=== PATIENT | female | born 1940 | race Caucasian/White ===

== ENCOUNTER 2017-01-01 23:18 | Inpatient (IN) | payer MEDICARE, BC ==
[~2017-01-01] VITALS: Ht 162.6 cm; Wt 59.0 kg
--- NOTE | 2017-01-02 02:00 | RADRPT ---
PROCEDURE: CHEST - 1 VIEW CLINICAL INDICATION: 76-year-old female with shortness of breath and sepsis. TECHNIQUE: A single frontal AP semi-erect portable view of the chest was performed. The images we re reviewed on a PACS workstation. COMPARISON: Chest x-ray October 24, 2009. FINDINGS: There is a shallow inspiration accentuating the heart size. Accounting for this, the cardiomediasti nal silhouette is within normal limits. The thoracic aortic arch is calcified. Chronic lung change s are present. There is mild bibasilar subsegmental atelectasis. There is no evidence for an infil trate. There is no evidence for congestive heart failure. There is no evidence for pneumothorax. Ge nerative changes are seen within the spine. IMPRESSION: 1. Calcified thoracic aortic arch. 2. Chronic lung changes. 3. Shallow inspiration. 4. Mild bibasilar subsegmental atelectasis. 5. Degenerative changes within the spine. .Tani Calvert MD, MD Date Time Electronically viewed and signed by .Tani Calvert MD, on 01/02/2017 01:59 .M/
[2017-01-02 02:23] LABS: ADD SCAN DIFF NO
[2017-01-02 02:28] LABS: BASOPHIL # 0.1 10^3/ul (0.0-0.1); BASOPHILS % 0.4 % (0.0-2.0); EOSINOPHILS # 0.5 10^3/ul (0.0-0.5); EOSINOPHILS % 4.8 % (0.0-7.0); HEMOGLOBIN 13.7 g/dl (12.0-16.0); LYMPHOCYTES % 26.4 % (15.0-51.0); MEAN CORPUSCULAR HEMOGLOBIN 30.7 pg (29.0-33.0); MEAN CORPUSCULAR HGB CONC 31.9 g/dl (32.0-37.0); MEAN CORPUSCULAR VOLUME 96.4 fl (82.0-101.0); MEAN PLATELET VOLUME 11.5 fl (7.4-10.4); MONOCYTE # 0.9 10^3/ul (0.3-0.9); NEUTROPHIL # 6.8 10^3/ul (1.6-7.5); NEUTROPHILS % 60.1 % (39.0-77.0); PLATELET COUNT 150 10^3/UL (140-415); RED BLOOD COUNT 4.46 10^6/ul (4.20-5.40); RED CELL DISTRIBUTION WIDTH 14.2 % (11.5-14.5); WHITE BLOOD COUNT 11.3 10^3/ul (4.8-10.8)
[2017-01-02 02:39] LABS: INR 1.51; PARTIAL THROMBOPLASTIN TIME 36.1 Sec (25.0-35.0); PROTIME 18.3 Sec (12.2-14.2); PT RATIO 1.4
[2017-01-02 02:40] LABS: URINE BLOOD (Dip) POC 1+ (NEGATIVE)
[2017-01-02 02:41] LABS: ALBUMIN 3.9 g/dl (3.3-4.9)
[2017-01-02 02:42] LABS: CHLORIDE 100 mmol/L (97-110); POTASSIUM 3.9 mmol/L (3.5-5.1); SODIUM 141 mmol/L (135-144)
[2017-01-02 02:44] LABS: ANION GAP 16 (8-16); ASPARTATE AMINO TRANSFERASE 63 IU/L (15-46); BILIRUBIN,INDIRECT 0.8 mg/dl (0-1.1); BILIRUBIN,TOTAL 0.8 mg/dl (0.2-1.3); CARBON DIOXIDE 29 mmol/L (21-31); CREATININE 0.79 mg/dl (0.44-1.00)
[2017-01-02 02:45] LABS: ALANINE AMINOTRANSFERASE 82 IU/L (13-69); ALBUMIN/GLOBULIN RATIO 0.78; ALKALINE PHOSPHATASE 100 IU/L (42-121); BLOOD UREA NITROGEN 12 mg/dl (7-20); CALCIUM 8.3 mg/dl (8.4-10.2); GLUCOSE 103 mg/dl (70-220); TOTAL PROTEIN 8.9 g/dl (6.1-8.1)
[2017-01-02 03:04] LABS: TROPONIN-I < 0.012 ng/ml (0.00-0.12)
[2017-01-02 03:10] LABS: ADD UMIC YES; URINE BILIRUBIN (Dip) NEGATIVE (NEGATIVE); URINE BLOOD (Dip) 2+ (NEGATIVE); URINE COLOR LT. YELLOW (YELLOW); URINE GLUCOSE (Dip) NEGATIVE (NEGATIVE); URINE KETONES (Dip) NEGATIVE (NEGATIVE); URINE LEUKOCYTE ESTERASE (Dip) 1+ (NEGATIVE); URINE NITRITE (Dip) NEGATIVE (NEGATIVE); URINE TOTAL PROTEIN (Dip) NEGATIVE (NEGATIVE); URINE UROBILINOGEN (Dip) 0.2 E.U./dL (0.1-1.0)
[2017-01-02 03:19] LABS: SQUAMOUS EPITHELIAL CELL,UR FEW
[2017-01-02 03:20] LABS: BACTERIA,URINE MANY
[2017-01-02] MEDS ORDERED: ACETAMINOPHEN 500 MG TAB PO ONE (03:30)
[2017-01-02] MEDS ORDERED: CEFTRIAXONE 1 GM/50 ML (PMX) 50 ML IVPB ONE (03:30)
--- NOTE | 2017-01-02 03:57 | ERA ---
ER Documentation Chief Complaint Date/Time DATE: 01/02/17 TIME: 03:56 Chief Complaint fever today HPI This is a very pleasant 68-year-old female comes in with complaints of fever and flank pain for the past 2 days. No not mild nausea no vomiting no fevers no chills no other current complaints. ROS All systems reviewed and are negative except as per history of present illness. Allergies Allergies: Coded Allergies: No Known Allergy (Unverified , 01/01/17) PMhx/Soc Hx Cardiac Disorders: Yes (HTN) Hx Miscellaneous Medical Probl: Yes (GERD, gallblader ds, recent DVT) Hx Alcohol Use: No Hx Substance Use: No Hx Tobacco Use: No Smoking Status: Never smoker Physical Exam Vitals Vital Signs Date Time Temp Pulse Resp B/P Pulse Ox O2 Delivery O2 Flow Rate FiO2 01/01/17 23:22 97.8 99 20 124/84 99 Physical Exam Const: [] Head: Atraumatic Eyes: Normal Conjunctiva ENT: Normal External Ears, Nose and Mouth. Neck: Full range of motion..~ No meningismus. Resp: Clear to auscultation bilaterally Cardio: Regular rate and rhythm, no murmurs Abd: Soft, non tender, non distended. Normal bowel sounds Skin: No petechiae or rashes Back: No midline or flank tenderness Ext: No cyanosis, or edema Neur: Awake and alert Psych: Normal Mood and Affect Result Diagram: 01/02/17 0204 01/02/17 0204 Results 24 hrs Laboratory Tests Test 01/02/17 02:04 01/02/17 02:25 01/02/17 02:39 White Blood Count 11.310^3/ul Red Blood Count 4.4610^6/ul Hemoglobin 13.7g/dl Hematocrit 43.0% Mean Corpuscular Volume 96.4fl Mean Corpuscular Hemoglobin 30.7pg Mean Corpuscular Hemoglobin Concent 31.9g/dl Red Cell Distribution Width 14.2% Platelet Count 63646^3/UL Mean Platelet Volume 11.5fl Neutrophils % 60.1% Lymphocytes % 26.4% Monocytes % 8.0% Eosinophils % 4.8% Basophils % 0.4% Nucleated Red Blood Cells % 0.0/100WBC Neutrophils # 6.810^3/ul Lymphocytes # 3.010^3/ul Monocytes # 0.910^3/ul Eosinophils # 0.510^3/ul Basophils # 0.110^3/ul Nucleated Red Blood Cells # 0.010^3/ul Prothrombin Time 18.3Sec Prothrombin Time Ratio 1.4 INR International Normalized Ratio 1.51 Activated Partial Thromboplast Time 36.1Sec Sodium Level 141mmol/L Potassium Level 3.9mmol/L Chloride Level 100mmol/L Carbon Dioxide Level 29mmol/L Anion Gap 16 Blood Urea Nitrogen 12mg/dl Creatinine 0.79mg/dl Glucose Level 103mg/dl Lactic Acid Level 1.0mmol/L Calcium Level 8.3mg/dl Total Bilirubin 0.8mg/dl Direct Bilirubin 0.00mg/dl Indirect Bilirubin 0.8mg/dl Aspartate Amino Transf (AST/SGOT) 63IU/L Alanine Aminotransferase (ALT/SGPT) 82IU/L Alkaline Phosphatase 100IU/L Troponin I < 0.012ng/ml Total Protein 8.9g/dl Albumin 3.9g/dl Globulin 5.00g/dl Albumin/Globulin Ratio 0.78 Urine Color LT. YELLOW Urine Clarity CLEAR Urine pH 6.5 Urine Specific [place] <=1.005 Urine Ketones NEGATIVE Urine Nitrite NEGATIVE Urine Bilirubin NEGATIVE Urine Urobilinogen 0.2 E.U./dL Urine Leukocyte Esterase 1+ Urine Microscopic RBC 2-5/HPF Urine Microscopic WBC 10-25/HPF Urine Squamous Epithelial Cells FEW Urine Bacteria MANY Urine Hemoglobin 2+ Urine Glucose NEGATIVE% Urine Total Protein NEGATIVE Bedside Urine pH (LAB) 7.0 Bedside Urine Protein (LAB) Negative Bedside Urine Glucose (UA) Negative Bedside Urine Ketones (LAB) Negative Bedside Urine Blood 1+ Bedside Urine Nitrite (LAB) Positive Bedside Urine Leukocyte Esterase (L 1+ Current Medications Medications (Trade) Dose Ordered Sig/Eli Route PRN Reason Start Time Stop Time Status Last Admin Dose Admin Acetaminophen 1000 mg 1,000 mg ONCE ONCE PO 01/02/17 03:30 01/02/17 03:33 DC Ceftriaxone Sodium (Rocephin) 50 ml @ 100 mls/hr ONCE ONCE IVPB 01/02/17 03:30 01/02/17 03:59 01/02/17 03:52 Procedures/MDM Medical decision-making: Patient comes in with x-ray evidence of early pyelonephritis. Started on Rocephin plus cultures. Patient will be admitted to hospitalist. Departure Diagnosis: Primary Impression: Pyelonephritis Condition: Serious TORY LAWS Jan 02, 2017 03:57
[2017-01-02 04:00] VITALS: TEMP 102
[2017-01-02] MEDS ORDERED: ONDANSETRON 4 MG INJ IV STA (04:28)
[2017-01-02] MEDS ORDERED: morphine 2 MG INJ IV PRN (05:30)
[2017-01-02] MEDS ORDERED: NACL 0.9% 3 ML SYG IV SCH (05:30)
[2017-01-02] MEDS ORDERED: ALBUTEROL/IPRATROPIUM (NEB) 3 ML AMP HHN PRN (05:30)
[2017-01-02] MEDS: SOD CHLORIDE 0.9% 1,000 ML IV SCH ×2 (05:58→17:38)
[2017-01-02 06:05] VITALS: Ht 162.6 cm; Wt 59.0 kg
--- NOTE | 2017-01-02 06:09 | HP ---
DATE OF ADMISSION: 01/02/2017 CHIEF COMPLAINT: Fever and right flank pain. HISTORY OF PRESENT ILLNESS: The patient is a 76-year-old female with a history of hypertension, CHRIS D, and recently diagnosed left lower extremity DVT who presented to the emergency department with ri ght flank pain and fever of 1 day duration. Symptoms started yesterday and have been progressively getting worse. She denied any chest pain, shortness of breath, nausea, or vomiting. According to t he daughter who is at the bedside, her mom has been experiencing some left lower extremity discomfor t for which her primary care doctor sent her to [facility] where she was diagnosed with a DVT about 3 week s ago on 12/11/2016 and is currently on Coumadin. When the patient presented to the ER, blood pressure was 124/84, heart rate 99, respiratory rate 20, temperature 97.8, oxygen saturation 99% on room air. While she was in the ER, right before she was admitted, she became febrile with a temperature of 102. Her white count is 11,000. She is tachyca rdic with a heart rate as high as 115. Urinalysis is consistent with a UTI. She was given Tylenol, Zofran, and Rocephin while she was in the ER. REVIEW OF SYSTEMS: A 12-point review was performed and negative except as mentioned in the HPI. PAST MEDICAL HISTORY: As per HPI. ALLERGIES: NO KNOWN DRUG ALLERGIES. HOME MEDICATIONS: 1. Coumadin. 2. Metoprolol. 3. Losartan. 4. Protonix. 5. Singulair. 6. Albuterol. PHYSICAL EXAMINATION: VITAL SIGNS: Currently, blood pressure 147/78, heart rate 115, respiratory rate 20, temperature 101 .8, oxygen saturation 97% on room air. GENERAL: Elderly female lying in bed. She appears uncomfortable which she said is from a fever. HEENT: No obvious head deformity. Pupils reactive to light. Extraocular muscles intact. CARDIOVASCULAR: Tachycardic with regular rhythm. LUNGS: Clear. ABDOMEN: Soft. There is tenderness in the right flank area. No guarding, no rigidity. There are positive bowel sounds. EXTREMITIES: No edema. No swelling of the lower extremity. Also, no tenderness to palpation of he r left calf. LABORATORY DATA: WBC 11,000. AST 63, ALT 82, calcium 8.3 with albumin of 3.9. Otherwise, the rest of her labs are stable. Her initial lactic acid was 1. IMAGING: Chest x-ray shows calcified thoracic aortic arch, chronic lung change, and mild bibasilar subsegmental atelectasis and degenerative changes in the spine. IMPRESSION: 1. Sepsis secondary to pyelonephritis. 2. History of hypertension. 3. History of recently diagnosed left leg DVT, on Coumadin. 4. History of gastroesophageal reflux disease. PLAN: She will be placed on antibiotic. We will follow up on the urine culture and blood culture r esults. She will receive IV fluids. We will provide pain medication as needed. We will continue h er home medications including her Coumadin. Further workup and management per clinical course. Dictated By: TORY ELAM/KAY Conf#: [id number] DID#: [id number]
[2017-01-02 08:04] VITALS: BP 118/58; RESP 16
[2017-01-02] MEDS ORDERED: HEPARIN 5,000 UNIT/0.5 ML VIAL SC SCH (09:00)
[2017-01-02 10:11] VITALS: BP 153/66; PULSE 98; RESP 20
[2017-01-02] MEDS: ACETAMINOPHEN 325 MG TAB PO PRN ×2 (10:13→17:36)
[2017-01-02] MEDS: LOSARTAN 50 MG TAB PO SCH (10:14)
[2017-01-02] MEDS: FAMOTIDINE 20 MG TAB PO SCH (10:14)
[2017-01-02] MEDS: METOPROLOL 50 MG TAB PO SCH (10:14)
[2017-01-02] MEDS ORDERED: CEFTRIAXONE 1 GM/50 ML (PMX) 50 ML IVPB SCH (13:00)
[2017-01-02] MEDS: PHENAZOPYRIDINE 200 MG TAB PO SCH ×2 (14:21→21:06)
[2017-01-02] MEDS: APIXABAN 5 MG TABLET PO SCH ×2 (14:29→21:06)
[2017-01-02] MEDS ORDERED: WARFARIN 3 MG TAB PO SCH (17:00)
[2017-01-02 20:54] VITALS: BP 119/57; RESP 20
[2017-01-02] MEDS ORDERED: IMIPENEM/CILASTATIN 1,000 MG in SOD CHLORIDE 0.9% 250 ML IVPB SCH (21:00)
[2017-01-02] MEDS: MONTELUKAST 10 MG TAB PO SCH (21:06)
--- NOTE | 2017-01-02 21:06 | CONS ---
Date/Time of Note Date/Time of Note DATE: 01/02/17 TIME: 20:35 Assessment/Plan Assessment/Plan Chief Complaint/Hosp Course ID PROGRESS NOTE TOTAL ABX DAY #1 => Ceftriaxone #1 => Change to Primaxin tonight 24H INTERVAL SUMMARY * Received ID consult from JOSE ALEJANDRO Sauer, thank you. * I met with the patient and introduced myself as Dr. Hernandez's ADVERTISING LAYOUT WORKER. * Patient A/A/O sitting up in chair w/daughter present attending to her, patient is weak and febrile, does not feel she has the strength to shower, daughter is encouraging her that she will feel better once she has showered, patient has been diaphoretic all day. * (+)Right flank pain, Fevers + Rigors + weakness * Daughter reports she was admitted to [facility] 12/11/16 for the same problem - she tells me they did not find stones -- found something "like sludge" and was told that if pyelonephritis returns then "she may need surgery" * PMHx: HTN, GERD, LLEXT recent DVT, DJD, COPD * CXR 01/03/16 IMPRESSION: 1. Calcified thoracic aortic arch. 2. Chronic lung changes. 3. Shallow inspiration. 4. Mild bibasilar subsegmental atelectasis. 5. Degenerative changes within the spine. PHYSICAL EXAMINATION: GENERAL: VSS,NAD, no fevers, A/A/O, well groomed, sitting up in chair, tells me she is weak and has right flank pain HEENT: Unremarkable NECK: Supple, trach-> midline CHEST: Equal chest rise bilaterally, without dyspnea on observation ABD: (+)Right flankk pain/(+CVA tenderness EXTREMITIES: Moves all extremities - warm SKIN: Intact Neuro: Grossly intact ID ASSESSMENT: 76 yo F admitted with: 1. Acute sepsis with fevers 103 + rigors, leukocytosis 11.3, rapid rise in lactic acid level from 1.0 - 1.7 = Sepsis Criteria 2. Acute recurrent pyelonephritis = Per daughter, patient admitted to [facility] with Pyelonephritis 12/11/16 and was told she had "sludge" no stones (QUERY if patient was admitted for cholangitis?) 3. Transaminitis ?due to sepsis vs alternative 4. HTN 5. COPD -> Stable on Singulair 6. GERD 7. Recent LLEXT recent DVT -> on Eliquis 8. DJD ()MRSA NARES -> Ordered today INVASIVES: * PIV ABX ALLERGIES: None to ABX CURRENT ABX: DAY #1 => Ceftriaxone => Change to Primaxin tonight ID RECOMMENDATIONS: * 1. The daughter is a poor historian, she tells me mother had stomach/back pain at [facility] and was told "no stones, she had sludge", doctors told her if the pain came back she wound need "surgery". Patient presents with transaminitis, the daughter's account sounds similiar to acute cholangitis vs cholecystitis. The [facility] records from the admission are not available. Recommend obtain the [facility] records from recent admission, I wrote order for nursing to assist with this. * 2. Due to recent hospitalization, I am concerned the patient needs Primaxin to cover for the possibility of hospital acquired pyelonephritis. DC Ceftriaxone and start Primaxin. The mother has high fevers with extreme weakness, has been diaphoretic for 24 hours. * Renal & Liver NOÉ -- r/o stones vs sludge ? * Thank you for the privilege of "Team MD Mary" ID Consultation - Will follow with you. Problems: Consultation Date/Type/Reason Admit Date/Time Jan 02, 2017 at 03:55 Initial Consult Date Exam/Review of Systems Vital Signs Vitals Vital Signs Date Time Temp Pulse Resp B/P Pulse Ox O2 Delivery O2 Flow Rate FiO2 01/02/17 10:15 101.9 01/02/17 10:11 98 20 153/66 94 Room Air 01/02/17 08:46 2.0 Intake and Output 01/01/17 01/01/17 01/02/17 15:00 23:00 07:00 Intake Total 50 ml Balance 50 ml Results Result Diagram: 01/02/17 0204 01/02/17 0204 Results 24 hrs Laboratory Tests Test 01/02/17 02:04 01/02/17 02:25 01/02/17 02:39 01/02/17 06:17 White Blood Count 11.3 H Red Blood Count 4.46 Hemoglobin 13.7 Hematocrit 43.0 Mean Corpuscular Volume 96.4 Mean Corpuscular Hemoglobin 30.7 Mean Corpuscular Hemoglobin Concent 31.9 L Red Cell Distribution Width 14.2 Platelet Count 150 Mean Platelet Volume 11.5 H Neutrophils % 60.1 Lymphocytes % 26.4 Monocytes % 8.0 Eosinophils % 4.8 Basophils % 0.4 Nucleated Red Blood Cells % 0.0 Neutrophils # 6.8 Lymphocytes # 3.0 H Monocytes # 0.9 Eosinophils # 0.5 Basophils # 0.1 Nucleated Red Blood Cells # 0.0 Prothrombin Time 18.3 H Prothrombin Time Ratio 1.4 INR International Normalized Ratio 1.51 Activated Partial Thromboplast Time 36.1 H Sodium Level 141 Potassium Level 3.9 Chloride Level 100 Carbon Dioxide Level 29 Anion Gap 16 Blood Urea Nitrogen 12 Creatinine 0.79 Glucose Level 103 Lactic Acid Level 1.0 1.0 Calcium Level 8.3 L Total Bilirubin 0.8 Direct Bilirubin 0.00 Indirect Bilirubin 0.8 Aspartate Amino Transf (AST/SGOT) 63 H Alanine Aminotransferase (ALT/SGPT) 82 H Alkaline Phosphatase 100 Troponin I < 0.012 Total Protein 8.9 H Albumin 3.9 Globulin 5.00 H Albumin/Globulin Ratio 0.78 Urine Color LT. YELLOW Urine Clarity CLEAR Urine pH 6.5 Urine Specific [place] <=1.005 L Urine Ketones NEGATIVE Urine Nitrite NEGATIVE Urine Bilirubin NEGATIVE Urine Urobilinogen 0.2 E.U./dL Urine Leukocyte Esterase 1+ H Urine Microscopic RBC 2-5 Urine Microscopic WBC 10-25 Urine Squamous Epithelial Cells FEW Urine Bacteria MANY Urine Hemoglobin 2+ H Urine Glucose NEGATIVE Urine Total Protein NEGATIVE Bedside Urine pH (LAB) 7.0 Bedside Urine Protein (LAB) Negative Bedside Urine Glucose (UA) Negative Bedside Urine Ketones (LAB) Negative Bedside Urine Blood 1+ H Bedside Urine Nitrite (LAB) Positive H Bedside Urine Leukocyte Esterase (L 1+ H Test 01/02/17 10:27 Lactic Acid Level 1.7 Medications Medications Current Medications Sodium Chloride (NS) 1,000 ml @ 100 mls/hr Q10H IV Last administered on t 17:38; Admin Dose 100 MLS/HR; Start 01/02/17 at 05:09; Stop 01/02/17 at 23: 00 Ondansetron HCl (Zofran Inj) 4 mg Q6H PRN IV NAUSEA AND/OR VOMITING; Start at 05:30 Acetaminophen (Tylenol Tab) 650 mg Q6H PRN PO PAIN LEVEL 1-3 OR FEVER Last administered on 01/02/17 17:36; Admin Dose 650 MG; Start 01/02/17 at 05:30 Morphine Sulfate 2 mg 2 mg Q4H PRN IV SEVERE PAIN LEVEL 7-10; Start 01/02/17 at 05:30 Ceftriaxone Sodium (Rocephin) 50 ml @ 100 mls/hr Q12 IVPB Last administered on 01/02/17 14:21; Admin Dose 100 MLS/HR; Start 01/02/17 at 13:00 Clonidine (Catapres) 0.1 mg Q6H PRN PO SBP > 160; Start 01/02/17 at 05:30 Famotidine (Pepcid) 20 mg DAILY PO Last administered on 01/02/17 10:14; Admin Dose 20 MG; Start 01/02/17 at 09:00 Metoprolol Tartrate (Lopressor) 50 mg DAILY PO Last administered on 01/02/17 10:14; Admin Dose 50 MG; Start 01/02/17 at 09:00 Losartan Potassium (Cozaar) 50 mg DAILY PO Last administered on 01/02/17 10:14 ; Admin Dose 50 MG; Start 01/02/17 at 09:00 Montelukast Sodium (Singulair) 10 mg HS PO ; Start 01/02/17 at 21:00 Phenazopyridine HCl (Pyridium) 200 mg TID PO Last administered on 01/02/17 14: 21; Admin Dose 200 MG; Start 01/02/17 at 13:00 Apixaban (Eliquis) 10 mg BID PO Last administered on 01/02/17 14:29; Admin Dose 10 MG; Start 01/02/17 at 14:30; Stop 01/04/17 at 22:00 Apixaban (Eliquis) 5 mg BID PO ; Start 01/05/17 at 09:00 JUSTIN ALEMAN NP Jan 02, 2017 20:45
[2017-01-02] MEDS: IMIPENEM-CILAST 500 MG/NS 100 ML IVPB SCH (22:39)
[2017-01-03] MEDS: ONDANSETRON 4 MG INJ IV PRN (01:54)
[2017-01-03] MEDS: ACETAMINOPHEN 325 MG TAB PO PRN ×3 (01:55→23:52)
[2017-01-03 02:09] VITALS: BP 133/63; PULSE 92; RESP 22
[2017-01-03] MEDS: IMIPENEM-CILAST 500 MG/NS 100 ML IVPB SCH ×5 (02:42→23:41)
[2017-01-03 05:49] LABS: ADD SCAN DIFF NO
[2017-01-03 06:05] LABS: INR 2.5; PROTIME 27.3 Sec (12.2-14.2); PT RATIO 2.1
[2017-01-03 06:18] LABS: ALBUMIN/GLOBULIN RATIO 0.68; BILIRUBIN,INDIRECT 0.5 mg/dl (0-1.1); BILIRUBIN,TOTAL 0.5 mg/dl (0.2-1.3); CALCIUM 7.4 mg/dl (8.4-10.2); CHOL/HDL RATIO 2.8 RATIO; CREATININE 0.64 mg/dl (0.44-1.00); MAGNESIUM 1.9 mg/dl (1.7-2.5); POTASSIUM 3.8 mmol/L (3.5-5.1); TOTAL PROTEIN 7.4 g/dl (6.1-8.1)
[2017-01-03 06:51] LABS: HEMOGLOBIN 11.7 g/dl (12.0-16.0); MEAN CORPUSCULAR HEMOGLOBIN 31.5 pg (29.0-33.0); MEAN CORPUSCULAR HGB CONC 32.5 g/dl (32.0-37.0); PLATELET COUNT 116 10^3/UL (140-415); RED BLOOD COUNT 3.71 10^6/ul (4.20-5.40); RED CELL DISTRIBUTION WIDTH 14.1 % (11.5-14.5); WHITE BLOOD COUNT 10.7 10^3/ul (4.8-10.8)
[2017-01-03 08:00] VITALS: BP 110/56; PULSE 64; RESP 16
--- NOTE | 2017-01-03 08:41 | RADRPT ---
PROCEDURE: US Abdomen and Retroperitoneum. CLINICAL INDICATION: Elevation LFTs. TECHNIQUE: Multiple real-time longitudinal and transverse images were acquired of the patient's ab domen and retroperitoneum utilizing a curved array transducer. COMPARISON: None. FINDINGS: Liver demonstrates asymmetric enlargement of the left lateral lobe of the liver and coarsening of th e liver echotexture without significant surface nodularity. No focal liver mass. Portal vein demonstrates hepatopetal flow. Gallbladder demonstrates trace sludge. There is no gallbladder wall thickening or pericholecystic f luid. No intra- or extrahepatic biliary dilation. Pancreas is partially visualized and grossly unremarkable. Spleen is normal in size. No hydronephrosis or nephrolithiasis. No ascites. Proximal aorta and IVC are unremarkable. MEASUREMENTS: Liver: 16.4 cm Common Duct: 0.5 cm Right Kidney: 8.8 m Left Kidney: 10.5 cm Spleen: 11.5 cm IMPRESSION: Morphologic changes in the liver, suggesting possible underlying diffuse liver disease without fredi cirrhosis. No focal liver lesion. Biliary system is nondilated. Trace sludge in the gallbladder. RPTAT: EE .Nic Crow MD, MD Date Time Electronically viewed and signed by .Nic Crow MD, MD on 01/03/2017 08:45 .C/
[2017-01-03] MEDS: APIXABAN 5 MG TABLET PO SCH ×2 (08:54→20:30)
[2017-01-03] MEDS: FAMOTIDINE 20 MG TAB PO SCH (08:54)
[2017-01-03] MEDS: PHENAZOPYRIDINE 200 MG TAB PO SCH ×3 (08:54→20:30)
[2017-01-03] MEDS: METOPROLOL 50 MG TAB PO SCH (08:54)
[2017-01-03] MEDS: LOSARTAN 50 MG TAB PO SCH (08:54)
[2017-01-03 10:29] LABS: PLATELETS CLUMPS 2+
[2017-01-03] MEDS ORDERED: VANCOMYCIN IV PER PHARMACY XX SCH (13:00)
--- NOTE | 2017-01-03 13:17 | CONS ---
DATE OF ADMISSION: 01/02/2017 DATE OF CONSULTATION: TYPE OF CONSULTATION: Infectious Disease. REASON FOR CONSULTATION: Antibiotic management. HISTORY OF PRESENT ILLNESS: Dayna Horvath is a 76-year-old female who was admitted with fever and right flank pain. Her past problems include: 1. Hypertension. 2. GERD. 3. Recently diagnosed left lower extremity deep venous thrombosis, She was admitted to the emergency room with right flank pain and fever of 1 day duration, which star chi 1 day prior to admission. She also had some left lower extremity discomfort and was diagnosed w ith DVT about 3 weeks ago and is on Coumadin. Vital signs were stable on admission, but her tempera ture spiked up to 102. LABORATORIES AND DIAGNOSTIC STUDIES: White count was 11,000. She became tachycardic in the emergen cy room and went up to 115. Urinalysis was suggestive of a urinary tract infection. On admission, her white count was 11.3, H and H 13.7 and 43, platelet count 150,000. White count on the was 10.7. BUN and creatinine is 8/0.64. Urine is negative for nitrite, 1+ leukocyte esterase, 10 to 25 white cells per high-power field. Chest x-ray: Calcified thoracic aortic arch, mild bibasilar subsegmental atelectasis, degenerative changes within the spine. Microbiology: She has gram-positive cocci in clusters. Blood cultures 1 out of 2. Her urine cultu res are pending. We ordered an ultrasound of the kidneys and the abdomen starting her on imipenem, also MRSA screen. She was on ceftriaxone. Abdominal ultrasound: Morphologic changes of the liver suggesting possibly underlying diffuse liver disease without fredi cirrhosis, biliary system is nondilated. PAST MEDICAL HISTORY: Operations as outlined. FAMILY HISTORY: Noncontributory. SOCIAL HISTORY: She does not smoke, drink or abuse drugs. ALLERGIES: NONE TO PENICILLIN, SULFA OR FOODS. MEDICATIONS: Per chart. REVIEW OF SYSTEMS: As per HPI. PHYSICAL EXAMINATION: GENERAL: The patient is an elderly appearing female who is uncomfortable. VITAL SIGNS: Stable, but T-max is 102. SKIN: Without generalized rash. HEENT: Within normal limits. NECK: Supple. LYMPH NODES: None palpable. CHEST: Decreased breath sounds at the bases. HEART: Without murmur or gallop. ABDOMEN: Soft, nontender, without organosplenomegaly or masses. EXTREMITIES: Without cyanosis, clubbing, or edema. RECTAL AND GENITAL: Deferred. NEUROLOGIC EVALUATION: No focal neurological abnormalities. IMPRESSION AND PLAN: The patient is currently on imipenem. We are going to place her on vancomycin as well. I will dictate my findings to Dr. Jaurez and the hospitalist. Dictated By: DEONTE JANSEN MD, JD/KAY Conf#: [id number] DID#: [id number]
[2017-01-03] MEDS ORDERED: VANCOMYCIN 1.25 GM in SOD CHLORIDE 0.9% 250 ML IVPB SCH (14:30)
--- NOTE | 2017-01-03 15:59 | PN ---
Date/Time of Note Date/Time of Note DATE: 01/03/17 TIME: 15:52 Assessment/Plan VTE Prophylaxis VTE Prophylaxis Intervention: SCD's Lines/Catheters IV Catheter Type (from Nrs): Peripheral IV Urinary Cath still in place: No Assessment/Plan Chief Complaint/Hosp Course Assessment/Plan: 1. Sepsis secondary to pyelonephritis. cont on abx. ID is following. cont with recommendations 2. History of hypertension. Cont on antihypertensives and adjust as needed 3. History of recently diagnosed left leg DVT. continue on eliquis 4. History of gastroesophageal reflux disease. continue on H2RB. DISPO/PLAN: continue abx treatment. Await for clinical improvement. continue inpatient monitoring Discussed plan of care with Dr. Lainez Problems: Subjective 24 Hr Interval Summary Free Text/Dictation still with right flank pain but less Exam/Review of Systems Vital Signs Vitals Vital Signs Date Time Temp Pulse Resp B/P Pulse Ox O2 Delivery O2 Flow Rate FiO2 01/03/17 08:00 Nasal Cannula 3.0 01/03/17 08:00 97.9 64 16 110/56 98 Intake and Output 01/02/17 01/02/17 01/03/17 15:00 23:00 07:00 Intake Total 1425 ml 800 ml Output Total 200 ml Balance 1225 ml 800 ml Exam Constitutional: alert, oriented Psych: nl mood/affect Head: normocephalic Neck: non-tender Respiratory: clear to auscultation, normal air movement Cardiovascular: regular rate and rhythm Gastrointestinal: soft, tender (minimally tender right side) Musculoskeletal: nl extremities to inspection Neurological: DECORATOR HAND II-XII intact, nl mental status, nl speech Skin: nl turgor Results Result Diagram: 01/03/1730 01/03/17 0530 Results 24 hrs Laboratory Tests Test 01/03/17 05:30 White Blood Count 10.7 Red Blood Count 3.71 L Hemoglobin 11.7 L Hematocrit 36.0 L Mean Corpuscular Volume 97.0 Mean Corpuscular Hemoglobin 31.5 Mean Corpuscular Hemoglobin Concent 32.5 Red Cell Distribution Width 14.1 Platelet Count 116 #L Mean Platelet Volume 12.0 H Clumped Platelets 2+ Prothrombin Time 27.3 #H Prothrombin Time Ratio 2.1 INR International Normalized Ratio 2.50 Sodium Level 136 Potassium Level 3.8 Chloride Level 107 Carbon Dioxide Level 25 Anion Gap 8 # Blood Urea Nitrogen 8 Creatinine 0.64 Glucose Level 121 Calcium Level 7.4 L Phosphorus Level 2.0 L Magnesium Level 1.9 Total Bilirubin 0.5 Direct Bilirubin 0.00 Indirect Bilirubin 0.5 Aspartate Amino Transf (AST/SGOT) 36 Alanine Aminotransferase (ALT/SGPT) 54 Alkaline Phosphatase 78 Total Protein 7.4 # Albumin 3.0 L Globulin 4.40 H Albumin/Globulin Ratio 0.68 Triglycerides Level 61 Cholesterol Level 110 LDL Cholesterol, Calculated 59 HDL Cholesterol 39 Cholesterol/HDL Ratio 2.8 Medications Medications Current Medications Ondansetron HCl (Zofran Inj) 4 mg Q6H PRN IV NAUSEA AND/OR VOMITING Last administered on 01/03/17 01:54; Admin Dose 4 MG; Start 01/02/17 at 05:30 Acetaminophen (Tylenol Tab) 650 mg Q6H PRN PO PAIN LEVEL 1-3 OR FEVER Last administered on 01/03/17 01:55; Admin Dose 650 MG; Start 01/02/17 at 05:30 Morphine Sulfate (morphine) 2 mg Q4H PRN IV SEVERE PAIN LEVEL 7-10; Start 01/02 at 05:30 Clonidine (Catapres) 0.1 mg Q6H PRN PO SBP > 160; Start 01/02/17 at 05:30 Famotidine (Pepcid) 20 mg DAILY PO Last administered on 01/03/17 08:54; Admin Dose 20 MG; Start 01/02/17 at 09:00 Metoprolol Tartrate (Lopressor) 50 mg DAILY PO Last administered on 01/02/17 10:14; Admin Dose 50 MG; Start 01/02/17 at 09:00 Losartan Potassium (Cozaar) 50 mg DAILY PO Last administered on 01/02/17 10:14 ; Admin Dose 50 MG; Start 01/02/17 at 09:00 Montelukast Sodium (Singulair) 10 mg HS PO Last administered on 01/02/17 21:06 ; Admin Dose 10 MG; Start 01/02/17 at 21:00 Phenazopyridine HCl (Pyridium) 200 mg TID PO Last administered on 01/03/17 12: 00; Admin Dose 200 MG; Start 01/02/17 at 13:00 Apixaban (Eliquis) 10 mg BID PO Last administered on 01/03/17 08:54; Admin Dose 10 MG; Start 01/02/17 at 14:30; Stop 01/04/17 at 22:00 Apixaban 5 mg 5 mg BID PO ; Start 01/05/17 at 09:00 Imipenem/ Cilastatin Sodium 100 ml @ 100 mls/hr Q6 IVPB Last administered on 12:00; Admin Dose 100 MLS/HR; Start 01/02/17 at 21:16 Vancomycin HCl 1.25 gm/Sodium Chloride 250 ml @ 83.333 mls/ hr ONCE IVPB Last administered on 01/03/17 14:57; Admin Dose 83.333 MLS/HR; Start 01/03/17 at 14: 30; Stop 01/03/17 at 23:56 Vancomycin HCl/ Sodium Chloride (Vancocin/NS) 150 ml @ 75 mls/hr Q12H IVPB ; Start 01/04/17 at 02:30 GREER TALLEY Jan 03, 2017 15:59
--- NOTE | 2017-01-03 17:30 | CONS ---
Date/Time of Note Date/Time of Note DATE: 01/03/17 TIME: 17:13 Assessment/Plan Assessment/Plan Chief Complaint/Hosp Course ID PROGRESS NOTE TOTAL ABX DAY #2 => Primaxin #2 +Vanco IV 24H INTERVAL SUMMARY * Feeling better, Tmax 99.1 after >72 H fevers + Rigors * (+)Right flank pain, Fevers + Rigors + weakness * ABD US: (-) Hydronephrosis, (-)renal stones, (-)Obstructive uropathy (+)Mild GB sludge w/Morphologic changes in the liver, suggesting possible underlying diffuse liver disease without fredi cirrhosis. No focal liver lesion. Biliary system is nondilated. * MICRO: * 01/02 URINE CULTURE Preliminary GRAM NEGATIVE BRYAN >100,000 CFU/ml * bLOOD CULTURE Preliminary GRAM POSITIVE COCCI IN CLUSTER * PMHx: HTN, GERD, LLEXT recent DVT, DJD, COPD * CXR 01/03/16 IMPRESSION: 1. Calcified thoracic aortic arch. 2. Chronic lung changes. 3. Shallow inspiration. 4. Mild bibasilar subsegmental atelectasis. 5. Degenerative changes within the spine. PHYSICAL EXAMINATION: GENERAL: VSS,NAD, no fevers, A/A/O, well groomed, sitting up in chair, tells me she is weak and has right flank pain HEENT: Unremarkable NECK: Supple, trach-> midline CHEST: Equal chest rise bilaterally, without dyspnea on observation ABD: (+)Right flank pain/(+CVA tenderness EXTREMITIES: Moves all extremities - warm SKIN: Intact Neuro: Grossly intact ID ASSESSMENT: 76 yo F admitted with: 1. Acute sepsis with fevers 103 + rigors, leukocytosis 11.3, rapid rise in lactic acid level from 1.0 - 1.7 = Sepsis Criteria * 01/02 BCx (+)GPC Clusters 1/2 bottles in ED - DDx skin contaminant vs True septicemia ? * RESOLVING: Afebrile today, WBC normalized, VSS 2. Acute recurrent GNR pyelonephritis w/right flank pain, fevers, rigors * Per daughter, patient admitted to [facility] with Pyelonephritis 12/11/16 and was told she had "sludge" no stones * QUERY: Urinary retention w/Bladder stasis ? * 01/02 GNR = pending 3. Transaminitis -> sepsis * US: (+)Mild GB sludge w/Morphologic changes in the liver, suggesting possible underlying diffuse liver disease without fredi cirrhosis. No focal liver lesion. Biliary system is nondilated. 4. HTN 5. COPD -> Stable on Singulair 6. GERD 7. Recent LLEXT recent DVT -> on Eliquis 8. DJD ()MRSA NARES -> Ordered today INVASIVES: * PIV ABX ALLERGIES: None to ABX CURRENT ABX: DAY #2 => Primaxin #2 + Vanco IV ID RECOMMENDATIONS: 1. Continue Primaxin & Vanco IV started for (+)GPC BCx =>taper per final micro results 2. Await BCx result -- If CoNS suspect skin contaminant . Problems: Consultation Date/Type/Reason Admit Date/Time Jan 02, 2017 at 03:55 Exam/Review of Systems Vital Signs Vitals Vital Signs Date Time Temp Pulse Resp B/P Pulse Ox O2 Delivery O2 Flow Rate FiO2 01/03/17 16:11 99.1 Room Air 01/03/17 16:08 3.0 01/03/17 08:00 64 16 110/56 98 Intake and Output 01/02/17 01/02/17 01/03/17 15:00 23:00 07:00 Intake Total 1425 ml 800 ml Output Total 200 ml Balance 1225 ml 800 ml Results Result Diagram: 01/03/17 0530 01/03/17 0530 Results 24 hrs Laboratory Tests Test 01/03/17 05:30 White Blood Count 10.7 Red Blood Count 3.71 L Hemoglobin 11.7 L Hematocrit 36.0 L Mean Corpuscular Volume 97.0 Mean Corpuscular Hemoglobin 31.5 Mean Corpuscular Hemoglobin Concent 32.5 Red Cell Distribution Width 14.1 Platelet Count 116 #L Mean Platelet Volume 12.0 H Clumped Platelets 2+ Prothrombin Time 27.3 #H Prothrombin Time Ratio 2.1 INR International Normalized Ratio 2.50 Sodium Level 136 Potassium Level 3.8 Chloride Level 107 Carbon Dioxide Level 25 Anion Gap 8 # Blood Urea Nitrogen 8 Creatinine 0.64 Glucose Level 121 Calcium Level 7.4 L Phosphorus Level 2.0 L Magnesium Level 1.9 Total Bilirubin 0.5 Direct Bilirubin 0.00 Indirect Bilirubin 0.5 Aspartate Amino Transf (AST/SGOT) 36 Alanine Aminotransferase (ALT/SGPT) 54 Alkaline Phosphatase 78 Total Protein 7.4 # Albumin 3.0 L Globulin 4.40 H Albumin/Globulin Ratio 0.68 Triglycerides Level 61 Cholesterol Level 110 LDL Cholesterol, Calculated 59 HDL Cholesterol 39 Cholesterol/HDL Ratio 2.8 Medications Medications Current Medications Ondansetron HCl (Zofran Inj) 4 mg Q6H PRN IV NAUSEA AND/OR VOMITING Last administered on 01/03/17 01:54; Admin Dose 4 MG; Start 01/02/17 at 05:30 Acetaminophen (Tylenol Tab) 650 mg Q6H PRN PO PAIN LEVEL 1-3 OR FEVER Last administered on 01/03/17 13:38; Admin Dose 650 MG; Start 01/02/17 at 05:30 Morphine Sulfate (morphine) 2 mg Q4H PRN IV SEVERE PAIN LEVEL 7-10; Start 01/02 at 05:30 Clonidine (Catapres) 0.1 mg Q6H PRN PO SBP > 160; Start 01/02/17 at 05:30 Famotidine (Pepcid) 20 mg DAILY PO Last administered on 01/03/17 08:54; Admin Dose 20 MG; Start 01/02/17 at 09:00 Metoprolol Tartrate (Lopressor) 50 mg DAILY PO Last administered on 01/02/17 10:14; Admin Dose 50 MG; Start 01/02/17 at 09:00 Losartan Potassium (Cozaar) 50 mg DAILY PO Last administered on 01/02/17 10:14 ; Admin Dose 50 MG; Start 01/02/17 at 09:00 Montelukast Sodium (Singulair) 10 mg HS PO Last administered on 01/02/17 21:06 ; Admin Dose 10 MG; Start 01/02/17 at 21:00 Phenazopyridine HCl (Pyridium) 200 mg TID PO Last administered on 01/03/17 12: 00; Admin Dose 200 MG; Start 01/02/17 at 13:00 Apixaban (Eliquis) 10 mg BID PO Last administered on 01/03/17 08:54; Admin Dose 10 MG; Start 01/02/17 at 14:30; Stop 01/04/17 at 22:00 Apixaban 5 mg 5 mg BID PO ; Start 01/05/17 at 09:00 Imipenem/ Cilastatin Sodium 100 ml @ 100 mls/hr Q6 IVPB Last administered on 12:00; Admin Dose 100 MLS/HR; Start 01/02/17 at 21:16 Vancomycin HCl 1.25 gm/Sodium Chloride 250 ml @ 83.333 mls/ hr ONCE IVPB Last administered on 01/03/17 14:57; Admin Dose 83.333 MLS/HR; Start 01/03/17 at 14: 30; Stop 01/03/17 at 23:56 Vancomycin HCl/ Sodium Chloride (Vancocin/NS) 150 ml @ 75 mls/hr Q12H IVPB ; Start 01/04/17 at 02:30 JUSTIN ALEMAN NP Jan 03, 2017 17:24
[2017-01-03] MEDS ORDERED: DIPHENHYDRAMINE 25 MG CAP PO PRN (18:00)
[2017-01-03 19:22] VITALS: BP 151/67; RESP 18
[2017-01-03] MEDS: MONTELUKAST 10 MG TAB PO SCH (20:30)
[2017-01-03 23:53] VITALS: BP 135/66; PULSE 75; RESP 18
[2017-01-04] MEDS: VANCOMYCIN 750 MG in SOD CHLORIDE 0.9% 150 ML IVPB SCH ×2 (03:01→16:28)
[2017-01-04] MEDS: IMIPENEM-CILAST 500 MG/NS 100 ML IVPB SCH ×3 (05:30→18:58)
[2017-01-04 05:36] VITALS: BP 151/67; PULSE 72; RESP 18
[2017-01-04 05:50] LABS: ADD SCAN DIFF NO
[2017-01-04] MEDS: ACETAMINOPHEN 325 MG TAB PO PRN ×2 (05:52→22:04)
[2017-01-04 06:00] LABS: BASOPHILS % 0.4 % (0.0-2.0); EOSINOPHILS # 0.3 10^3/ul (0.0-0.5); EOSINOPHILS % 3.9 % (0.0-7.0); HEMATOCRIT 36.5 % (37.0-47.0); HEMOGLOBIN 11.8 g/dl (12.0-16.0); LYMPHOCYTES # 2.2 10^3/ul (0.8-2.9); LYMPHOCYTES % 29.9 % (15.0-51.0); MEAN CORPUSCULAR HEMOGLOBIN 31.3 pg (29.0-33.0); MEAN CORPUSCULAR HGB CONC 32.3 g/dl (32.0-37.0); MEAN CORPUSCULAR VOLUME 96.8 fl (82.0-101.0); MEAN PLATELET VOLUME 12.2 fl (7.4-10.4); MONOCYTE # 0.7 10^3/ul (0.3-0.9); MONOCYTES % 9.1 % (0.0-11.0); NEUTROPHIL # 4.2 10^3/ul (1.6-7.5); NEUTROPHILS % 56.3 % (39.0-77.0); PLATELET COUNT 113 10^3/UL (140-415); RED BLOOD COUNT 3.77 10^6/ul (4.20-5.40); RED CELL DISTRIBUTION WIDTH 13.6 % (11.5-14.5); WHITE BLOOD COUNT 7.4 10^3/ul (4.8-10.8)
[2017-01-04 06:04] LABS: POTASSIUM 3.8 mmol/L (3.5-5.1)
[2017-01-04 06:06] LABS: CREATININE 0.58 mg/dl (0.44-1.00); INR 2.02; PROTIME 23.1 Sec (12.2-14.2); PT RATIO 1.8
[2017-01-04 06:07] LABS: CALCIUM 7.6 mg/dl (8.4-10.2)
[2017-01-04 07:17] VITALS: BP 139/63; PULSE 68; RESP 16
[2017-01-04] MEDS: APIXABAN 5 MG TABLET PO SCH ×2 (09:01→21:47)
[2017-01-04] MEDS: LOSARTAN 50 MG TAB PO SCH (09:01)
[2017-01-04] MEDS: PHENAZOPYRIDINE 200 MG TAB PO SCH ×3 (09:01→21:47)
[2017-01-04] MEDS: METOPROLOL 50 MG TAB PO SCH (09:02)
[2017-01-04] MEDS: FAMOTIDINE 20 MG TAB PO SCH (09:02)
--- NOTE | 2017-01-04 15:13 | PN ---
Date/Time of Note Date/Time of Note DATE: 01/04/17 TIME: 15:10 Assessment/Plan VTE Prophylaxis VTE Prophylaxis Intervention: SCD's, other (eliquis) Lines/Catheters IV C[facility]ter Type [facility]from [facility] Peripheral IV Urinary Cath still in place: No Assessment/Plan Chief Complaint/Hosp Course Assessment/Plan: 1. Sepsis secondary to pyelonephritis. Patient noted with ESBL in the urine. ABX per ID. 2. History of hypertension. Cont on antihypertensives and adjust as needed 3. History of recently diagnosed left leg DVT. continue on eliquis 4. History of gastroesophageal reflux disease. continue on H2RB. DISPO/PLAN: ESBL in the urine. Follow-up with ABX treatment per ID. Continue inpatient monitoring Discussed plan of care with Dr. Lainez Problems: Subjective 24 Hr Interval Summary Free Text/Dictation Noted with fevers as side. Reports less right-sided flank pain. Exam/Review of Systems Vital Signs Vitals Vital Signs Date Time Temp Pulse Resp B/P Pulse Ox O2 Delivery O2 Flow Rate FiO2 01/04/17 08:00 Nasal Cannula 3.0 01/04/17 07:17 98.0 68 16 139/63 98 Intake and Output 01/03/17 01/03/17 01/04/17 15:00 23:00 07:00 Intake Total 100 ml 1350 ml 450 ml Output Total 600 ml 400 ml Balance 100 ml 750 ml 50 ml Exam General: No acute signs or symptoms of distress Eyes: pupils equal round, Anicteric sclera Neck: Supple nontender, no JVD Cardiac: S1, S2 auscultated, regular rhythm and rate Pulmonary: No coarse rhonchi or breathing auscultated GI: Minimally tender on right flank Extremities: No edema bilateral lower extremities Skin: Clean dry and intact Neurologic: Alert to person place and time and situation Results Result Diagram: 01/04/17 0505 01/04/17 0505 Results 24 hrs Laboratory Tests Test 01/04/17 05:05 White Blood Count 7.4 # Red Blood Count 3.77 L Hemoglobin 11.8 L Hematocrit 36.5 L Mean Corpuscular Volume 96.8 Mean Corpuscular Hemoglobin 31.3 Mean Corpuscular Hemoglobin Concent 32.3 Red Cell Distribution Width 13.6 Platelet Count 113 L Mean Platelet Volume 12.2 H Neutrophils % 56.3 Lymphocytes % 29.9 Monocytes % 9.1 Eosinophils % 3.9 Basophils % 0.4 Nucleated Red Blood Cells % 0.0 Neutrophils # 4.2 Lymphocytes # 2.2 Monocytes # 0.7 Eosinophils # 0.3 Basophils # 0.0 Nucleated Red Blood Cells # 0.0 Prothrombin Time 23.1 H Prothrombin Time Ratio 1.8 INR International Normalized Ratio 2.02 Sodium Level 138 Potassium Level 3.8 Chloride Level 105 Carbon Dioxide Level 27 Anion Gap 10 Blood Urea Nitrogen 9 Creatinine 0.58 Glucose Level 103 Calcium Level 7.6 L Medications Medications Current Medications Ondansetron HCl (Zofran Inj) 4 mg Q6H PRN IV NAUSEA AND/OR VOMITING Last administered on 01/03/17 01:54; Admin Dose 4 MG; Start 01/02/17 at 05:30 Acetaminophen (Tylenol Tab) 650 mg Q6H PRN PO PAIN LEVEL 1-3 OR FEVER Last administered on 01/04/17 05:52; Admin Dose 650 MG; Start 01/02/17 at 05:30 Morphine Sulfate (morphine) 2 mg Q4H PRN IV SEVERE PAIN LEVEL 7-10; Start 01/02 at 05:30 Clonidine (Catapres) 0.1 mg Q6H PRN PO SBP > 160; Start 01/02/17 at 05:30 Famotidine (Pepcid) 20 mg DAILY PO Last administered on 01/04/17 09:02; Admin Dose 20 MG; Start 01/02/17 at 09:00 Metoprolol Tartrate (Lopressor) 50 mg DAILY PO Last administered on 01/04/17 09:02; Admin Dose 50 MG; Start 01/02/17 at 09:00 Losartan Potassium (Cozaar) 50 mg DAILY PO Last administered on 01/04/17 09:01 ; Admin Dose 50 MG; Start 01/02/17 at 09:00 Montelukast Sodium (Singulair) 10 mg HS PO Last administered on 01/03/17 20:30 ; Admin Dose 10 MG; Start 01/02/17 at 21:00 Phenazopyridine HCl (Pyridium) 200 mg TID PO Last administered on 01/04/17 12: 00; Admin Dose 200 MG; Start 01/02/17 at 13:00 Apixaban (Eliquis) 10 mg BID PO Last administered on 01/04/17 09:01; Admin Dose 10 MG; Start 01/02/17 at 14:30; Stop 01/04/17 at 22:00 Apixaban 5 mg 5 mg BID PO ; Start 01/05/17 at 09:00 Imipenem/ Cilastatin Sodium 100 ml @ 100 mls/hr Q6 IVPB Last administered on 11:55; Admin Dose 100 MLS/HR; Start 01/02/17 at 21:16 Vancomycin HCl/ Sodium Chloride (Vancocin/NS) 150 ml @ 75 mls/hr Q12H IVPB Last administered on 01/04/17 03:01; Admin Dose 75 MLS/HR; Start 01/04/17 at 02 :30 Diphenhydramine HCl (Benadryl) 25 mg Q6H PRN PO ITCHING Last administered on 18:09; Admin Dose 25 MG; Start 01/03/17 at 18:00 Miscellaneous Information (*Rx Drug Level Order Reminder*) VANCOMYCIN TROUGH AT 0,200 ON... ONCE ONCE XX ; Start 01/05/17 at 02:00; Stop 01/05/17 at 02:01 GREER TALLEY Jan 04, 2017 15:13
--- NOTE | 2017-01-04 16:33 | CONS ---
Date/Time of Note Date/Time of Note DATE: 01/04/17 TIME: 16:24 Assessment/Plan Assessment/Plan Chief Complaint/Hosp Course ID PROGRESS NOTE TOTAL ABX DAY #2 => Primaxin #2 +Vanco IV 24H INTERVAL SUMMARY * Looks great -- feels very well -- OOB chair symptoms have resolved -- (-) Fevers, (-)Flank pain * URINE CULTURE Final Organism 1 ESCHERICHIA COLI (ESBL) COLONY COUNT <10,000 CFU/ml . MULTI [employer] RESISTANT [employer] Phoned to JOSEPH,[id number],JUICE,[id number],01/04/17.[facility] ESBL [facility] RX --------- --- AMIKACIN 16 S AMPICILLIN >=32 R CEFAZOLIN R CEFEPIME 8 S CEFOTAXIME R CIPROFLOXACIN >=4 R GENTAMICIN >=16 R IMIPENEM <=0.25 S LEVOFLOXACIN >=8 R NITROFURANTOIN <=16 S TOBRAMYCIN >=16 R TRIMETHOPRIM/SULFAMETHOXAZOLE <=20 S PIPERACILLIN/TAZOBACTAM 8 S * PHYSICAL EXAMINATION: GENERAL: VSS,NAD, no fevers, A/A/O, well groomed, sitting up in chair, tells me she is weak and has right flank pain HEENT: Unremarkable NECK: Supple, trach-> midline CHEST: Equal chest rise bilaterally, without dyspnea on observation ABD: (+)Right flank pain/(+CVA tenderness EXTREMITIES: Moves all extremities - warm SKIN: Intact Neuro: Grossly intact ID ASSESSMENT: 76 yo F admitted with: 1. Acute sepsis with fevers 103 + rigors, leukocytosis 11.3, rapid rise in lactic acid level from 1.0 - 1.7 = Sepsis Criteria * 01/02 BCx (+)GPC Clusters 1/2 bottles in ED = consistent w/skin contaminant * RESOLVING: Afebrile today, WBC normalized, VSS 2. Acute recurrent GNR pyelonephritis w/right flank pain, fevers, rigors * QUERY: Urinary retention w/Bladder stasis ? * 01/02 GNR 3. Transaminitis -> sepsis * US: (+)Mild GB sludge w/Morphologic changes in the liver, suggesting possible underlying diffuse liver disease without fredi cirrhosis. No focal liver lesion. Biliary system is nondilated. 4. HTN 5. COPD -> Stable on Singulair 6. GERD 7. Recent LLEXT recent DVT -> on Eliquis 8. DJD ()MRSA NARES -> Ordered today INVASIVES: * PIV ABX ALLERGIES: None to ABX CURRENT ABX: DAY #2 => Primaxin #2 + Vanco IV ID RECOMMENDATIONS: 1. DC Vanco IV = GPC is likely skin contaminant 2. Dr. Hernandez prefers to keep the patient on IV ABX for total of MDRO E.Coli- ESBL UTI pyelonephritis * Macrodantin is NOT effective for Pyelonephritis -- It is effective for Cystitis * While Bactrim is sensitive -- it is NOT approved for ESBL as it develops resistance immediately and not recommended. 3. When cleared for DC home, patient may DC home with Ertapenem 1 GM IVPB for a total of 10 days - last day 01/12/17 * NOTE: Ertapenem is NOT a vesicant; hence can be given via PIV (PICC is optional) . . . Problems: Consultation Date/Type/Reason Admit Date/Time Jan 02, 2017 at 03:55 Exam/Review of Systems Vital Signs Vitals Vital Signs Date Time Temp Pulse Resp B/P Pulse Ox O2 Delivery O2 Flow Rate FiO2 01/04/17 15:37 3.0 01/04/17 08:00 Nasal Cannula 01/04/17 07:17 98.0 68 16 139/63 98 Intake and Output 01/03/17 01/03/17 01/04/17 15:00 23:00 07:00 Intake Total 100 ml 1350 ml 450 ml Output Total 600 ml 400 ml Balance 100 ml 750 ml 50 ml Results Result Diagram: 01/04/17 0505 01/04/17 0505 Results 24 hrs Laboratory Tests Test 01/04/17 05:05 White Blood Count 7.4 # Red Blood Count 3.77 L Hemoglobin 11.8 L Hematocrit 36.5 L Mean Corpuscular Volume 96.8 Mean Corpuscular Hemoglobin 31.3 Mean Corpuscular Hemoglobin Concent 32.3 Red Cell Distribution Width 13.6 Platelet Count 113 L Mean Platelet Volume 12.2 H Neutrophils % 56.3 Lymphocytes % 29.9 Monocytes % 9.1 Eosinophils % 3.9 Basophils % 0.4 Nucleated Red Blood Cells % 0.0 Neutrophils # 4.2 Lymphocytes # 2.2 Monocytes # 0.7 Eosinophils # 0.3 Basophils # 0.0 Nucleated Red Blood Cells # 0.0 Prothrombin Time 23.1 H Prothrombin Time Ratio 1.8 INR International Normalized Ratio 2.02 Sodium Level 138 Potassium Level 3.8 Chloride Level 105 Carbon Dioxide Level 27 Anion Gap 10 Blood Urea Nitrogen 9 Creatinine 0.58 Glucose Level 103 Calcium Level 7.6 L Medications Medications Current Medications Ondansetron HCl (Zofran Inj) 4 mg Q6H PRN IV NAUSEA AND/OR VOMITING Last administered on 01/03/17 01:54; Admin Dose 4 MG; Start 01/02/17 at 05:30 Acetaminophen (Tylenol Tab) 650 mg Q6H PRN PO PAIN LEVEL 1-3 OR FEVER Last administered on 01/04/17 05:52; Admin Dose 650 MG; Start 01/02/17 at 05:30 Morphine Sulfate (morphine) 2 mg Q4H PRN IV SEVERE PAIN LEVEL 7-10; Start 01/02 at 05:30 Clonidine (Catapres) 0.1 mg Q6H PRN PO SBP > 160; Start 01/02/17 at 05:30 Famotidine (Pepcid) 20 mg DAILY PO Last administered on 01/04/17 09:02; Admin Dose 20 MG; Start 01/02/17 at 09:00 Metoprolol Tartrate (Lopressor) 50 mg DAILY PO Last administered on 01/04/17 09:02; Admin Dose 50 MG; Start 01/02/17 at 09:00 Losartan Potassium (Cozaar) 50 mg DAILY PO Last administered on 01/04/17 09:01 ; Admin Dose 50 MG; Start 01/02/17 at 09:00 Montelukast Sodium (Singulair) 10 mg HS PO Last administered on 01/03/17 20:30 ; Admin Dose 10 MG; Start 01/02/17 at 21:00 Phenazopyridine HCl (Pyridium) 200 mg TID PO Last administered on 01/04/17 12: 00; Admin Dose 200 MG; Start 01/02/17 at 13:00 Apixaban (Eliquis) 10 mg BID PO Last administered on 01/04/17 09:01; Admin Dose 10 MG; Start 01/02/17 at 14:30; Stop 01/04/17 at 22:00 Apixaban 5 mg 5 mg BID PO ; Start 01/05/17 at 09:00 Imipenem/ Cilastatin Sodium 100 ml @ 100 mls/hr Q6 IVPB Last administered on 11:55; Admin Dose 100 MLS/HR; Start 01/02/17 at 21:16 Vancomycin HCl/ Sodium Chloride (Vancocin/NS) 150 ml @ 75 mls/hr Q12H IVPB Last administered on 01/04/17 03:01; Admin Dose 75 MLS/HR; Start 01/04/17 at 02 :30 Diphenhydramine HCl (Benadryl) 25 mg Q6H PRN PO ITCHING Last administered on 18:09; Admin Dose 25 MG; Start 01/03/17 at 18:00 Miscellaneous Information (*Rx Drug Level Order Reminder*) VANCOMYCIN TROUGH AT 0,200 ON... ONCE ONCE XX ; Start 01/05/17 at 02:00; Stop 01/05/17 at 02:01 JUSTIN ALEMAN NP Jan 04, 2017 16:33 Diphenhydramine HCl (Benadryl) 25 mg Q6H PRN PO ITCHING Last administered on 18:09; Admin Dose 25 MG; Start 01/03/17 at 18:00 Miscellaneous Information (*Rx Drug Level Order Reminder*) VANCOMYCIN TROUGH AT 0,200 ON... ONCE ONCE XX ; Start 01/05/17 at 02:00; Stop 01/05/17 at 02:01 JUSTIN ALEMAN NP Jan 04, 2017 16:33
[2017-01-04 20:46] VITALS: BP 151/72; RESP 18
[2017-01-04] MEDS ORDERED: CALCIUM CARBONATE 500 MG CHEW TAB PO PRN (21:30)
[2017-01-04] MEDS: MONTELUKAST 10 MG TAB PO SCH (21:47)
[2017-01-04] MEDS: ONDANSETRON 4 MG INJ IV PRN (22:16)
[2017-01-05 00:24] VITALS: BP 104/55; PULSE 72
[2017-01-05] MEDS: IMIPENEM-CILAST 500 MG/NS 100 ML IVPB SCH ×3 (00:24→12:25)
[2017-01-05 06:15] LABS: ADD SCAN DIFF NO
[2017-01-05 06:35] LABS: BASOPHIL # 0.1 10^3/ul (0.0-0.1); BASOPHILS % 0.8 % (0.0-2.0); EOSINOPHILS # 0.6 10^3/ul (0.0-0.5); EOSINOPHILS % 9.2 % (0.0-7.0); HEMATOCRIT 36.4 % (37.0-47.0); HEMOGLOBIN 11.7 g/dl (12.0-16.0); INR 1.7; LYMPHOCYTES # 2.5 10^3/ul (0.8-2.9); LYMPHOCYTES % 41.7 % (15.0-51.0); MEAN CORPUSCULAR HGB CONC 32.1 g/dl (32.0-37.0); MEAN CORPUSCULAR VOLUME 96.3 fl (82.0-101.0); MEAN PLATELET VOLUME 11.6 fl (7.4-10.4); MONOCYTE # 0.6 10^3/ul (0.3-0.9); MONOCYTES % 9.4 % (0.0-11.0); NEUTROPHIL # 2.3 10^3/ul (1.6-7.5); NEUTROPHILS % 38.7 % (39.0-77.0); PLATELET COUNT 123 10^3/UL (140-415); PROTIME 20.1 Sec (12.2-14.2); PT RATIO 1.6; RED BLOOD COUNT 3.78 10^6/ul (4.20-5.40); RED CELL DISTRIBUTION WIDTH 13.6 % (11.5-14.5); WHITE BLOOD COUNT 6.1 10^3/ul (4.8-10.8)
[2017-01-05 06:52] LABS: POTASSIUM 3.8 mmol/L (3.5-5.1)
[2017-01-05 06:55] LABS: CREATININE 0.57 mg/dl (0.44-1.00)
[2017-01-05 06:56] LABS: CALCIUM 8.1 mg/dl (8.4-10.2)
[2017-01-05 07:27] VITALS: BP 145/67; RESP 20
[2017-01-05] MEDS: FAMOTIDINE 20 MG TAB PO SCH (08:07)
[2017-01-05] MEDS: PHENAZOPYRIDINE 200 MG TAB PO SCH ×2 (08:07→12:25)
[2017-01-05] MEDS: LOSARTAN 50 MG TAB PO SCH (08:08)
[2017-01-05] MEDS: METOPROLOL 50 MG TAB PO SCH (08:11)
[2017-01-05] MEDS ORDERED: APIXABAN 5 MG TABLET PO SCH (09:00)
[2017-01-05] MEDS ORDERED: METO-429 PO (11:19)
[2017-01-05] MEDS ORDERED: ERTA1VIA IV (11:19)
[2017-01-05] MEDS ORDERED: APIX5TAB PO (11:19)
[2017-01-05] MEDS ORDERED: LOSA50TA2 PO (11:19)
[2017-01-05] MEDS ORDERED: PHEN-538 PO (11:19)
[2017-01-05] MEDS ORDERED: MONT10TA24 PO (11:19)
--- NOTE | 2017-01-05 11:21 | PDOCDIS ---
Discharge Instructions DIAGNOSIS Discharge Diagnosis: 1. Sepsis secondary to pyelonephritis with ESBL 2. Essential hypertension CONDITION Patient Condition: Stable HOME CARE INSTRUCTIONS: Diet Instructions: Low Fat /Cholesterol FOLLOW UP/APPOINTMENTS Appointments 1. Follow-up with your primary care provider within a week GREER TALLEY Jan 05, 2017 11:20
[2017-01-05] MEDS ORDERED: TRAM50TA2 PO (11:24)
== END 2017-01-05 17:30 | disposition home or self-care (01) | DRG 872 ==
LOC: E/R 23:18 → MS2 01-02 03:55
PROVIDERS: ADMIT Internal Medicine; ATTEND Internal Medicine
DX: A41.89 Other specified sepsis (principal); I82.4Z2 Acute embolism and thrombosis of unspecified deep veins of left distal lower extremity; N10 Acute pyelonephritis; J44.9 Chronic obstructive pulmonary disease, unspecified; I10 Essential (primary) hypertension; B96.89 Other specified bacterial agents as the cause of diseases classified elsewhere; K21.9 Gastro-esophageal reflux disease without esophagitis; M19.91 Primary osteoarthritis, unspecified site; Z79.01 Long term (current) use of anticoagulants; Z86.718 Personal history of other venous thrombosis and embolism; Z79.02 Long term (current) use of antithrombotics/antiplatelets
CPT/HCPCS: 36415; 71010; 76700; 80048; 80053; 80061; 81001; 81003; 83605; 83735; 84100; 84484; 85025; 85610; 85730; 87040; 87081; 87086; 93005; 96365; 96375; J0696; J0743; J1644; J2405; J3370; J7030; J7050

== ENCOUNTER 2017-02-01 17:42 | Inpatient (IN) | payer MEDICARE, BC ==
[~2017-02-01] VITALS: Ht 121.9 cm; Wt 59.5 kg
[~2017-02-01 17:42] MED LIST: APIX5TAB PO; ERTA1VIA IV; LOSA50TA2 PO; METO-429 PO; MONT10TA24 PO; PHEN-538 PO; TRAM50TA2 PO
--- NOTE | 2017-02-01 19:11 | ERA ---
ER Documentation Chief Complaint Date/Time DATE: 02/01/17 TIME: 19:10 Chief Complaint DIARRHEA, FEVER AT HOME, WEAKNESS, MILD ABD PAIN, NO VOMITING HPI The patient is a 76-year-old female, presenting to the ER because of diarrhea for the last 5 days. She was admitted recently and discharged about 10 days ago for sepsis due to pyelonephritis. She saw her physician yesterday who treated her with Flagyl. She complains of fever of 101.6 today. She denies any hematochezia, denies fever, chills, neck pain, chest pain, dyspnea, nausea, vomiting, dysuria. 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 Medications Home Meds Active Scripts Tramadol HCl (Tramadol HCl) 50 Mg Tablet, 50 MG PO Q6H Y for PAIN, #20 TAB Prov:GREER TALLEY 01/05/17 Montelukast Sodium* (Montelukast Sodium*) 10 Mg Tablet, 10 MG PO HS for 30 Days , TAB Prov:REGGREER PARDO 01/05/17 Metoprolol Tartrate* (Lopressor*) 50 Mg Tab, 50 MG PO DAILY for 30 Days, TAB Prov:GREER TALLEY 01/05/17 Losartan Potassium* (Cozaar*) 50 Mg Tablet, 50 MG PO DAILY for 30 Days, TAB Prov:GREER TALLEY 01/05/17 Apixaban* (Eliquis*) 5 Mg Tablet, 5 MG PO BID for 30 Days, TAB Prov:GREER TALLEY 01/05/17 Reported Medications Albuterol Sulfate* (Ventolin HFA*) 18 Gm Hfa.aer.ad, 2 PUFF INHALATION Q4H Y for PRN, #1 INHALER 02/01/17 Metronidazole* (Flagyl*) 500 Mg Tablet, 500 MG PO BID, TAB 02/01/17 Gabapentin* (Gabapentin*) 100 Mg Capsule, 100 MG PO QHS, #90 CAP 02/01/17 Pantoprazole* (Pantoprazole*) 40 Mg Tablet.dr, 40 MG PO AC BREAKFAST, TAB 02/01/17 Ranitidine Hcl* (Ranitidine Hcl*) 150 Mg Tablet, 150 MG PO HS, #30 TAB 02/01/17 Discontinued Scripts Phenazopyridine Hcl* (Pyridium*) 200 Mg Tab, 200 MG PO TID for 3 Days, TAB Prov:GREER TALLEY 01/05/17 Ertapenem Sodium (Invanz) 1 Gm Vial.port, 1 GM IV DAILY, #7 Prov:GREER TALLEY 01/05/17 Allergies Allergies: Coded Allergies: Milk Containing Products (Verified Allergy, Mild, BLOATED STOMACH, VOMITING, ACID REFLUX, 02/01/17) CAN TOLERATE LACTAID PRODUCTS cauliflower (Verified Allergy, Mild, BLOATED, GAS, 02/01/17) nut - unspecified (Verified Adverse Reaction, Severe, SOB, 02/01/17) shrimp (Verified Adverse Reaction, Severe, SOB, 02/01/17) PMhx/Soc History of Surgery: Yes (EYE SURGERY AND FOOT SURGERY) Anesthesia Reaction: No Hx Neurological Disorder: No Hx Respiratory Disorders: No Hx Cardiac Disorders: Yes (HTN) Hx Psychiatric Problems: No Hx Miscellaneous Medical Probl: Yes (GERD, RECENT DVT ON THE LEG) Hx Alcohol Use: No Hx Substance Use: No Hx Tobacco Use: No Physical Exam Vitals Vital Signs Date Time Temp Pulse Resp B/P Pulse Ox O2 Delivery O2 Flow Rate FiO2 02/01/17 20:24 67 16 132/66 97 Room Air 02/01/17 17:45 98.9 76 17 112/56 99 Physical Exam Const: No acute distress. Head: Atraumatic. Eyes: Normal Conjunctiva. ENT: Normal External Ears, Nose and Mouth. Neck: Full range of motion. No meningismus. Resp: Clear to auscultation bilaterally. Cardio: Regular rate and rhythm, no murmurs. Abd: Soft, non distended, normal bowel sounds, vague and diffuse abdominal tenderness, no rigidity, rebound, CVA tenderness Skin: No petechiae or rashes. Back: No midline or flank tenderness. Ext: No cyanosis, or edema. Neur: Awake and alert. No focal deficit Psych: Normal Mood and Affect. Result Diagram: 02/01/17192402/01/171924 Results 24 hrs Laboratory Tests Test 02/01/17 19:25 02/01/17 21:21 White Blood Count 7.010^3/ul Red Blood Count 4.1010^6/ul Hemoglobin 13.2g/dl Hematocrit 39.9% Mean Corpuscular Volume 97.3fl Mean Corpuscular Hemoglobin 32.2pg Mean Corpuscular Hemoglobin Concent 33.1g/dl Red Cell Distribution Width 14.6% Platelet Count 72735^3/UL Mean Platelet Volume 11.3fl Neutrophils % 56.6% Lymphocytes % 29.8% Monocytes % 8.4% Eosinophils % 4.3% Basophils % 0.6% Nucleated Red Blood Cells % 0.0/100WBC Neutrophils # 4.010^3/ul Lymphocytes # 2.110^3/ul Monocytes # 0.610^3/ul Eosinophils # 0.310^3/ul Basophils # 0.010^3/ul Nucleated Red Blood Cells # 0.010^3/ul Platelet Estimate PLT APPEAR Clumped Platelets FEW Large Platelets FEW Prothrombin Time 16.3Sec Prothrombin Time Ratio 1.3 INR International Normalized Ratio 1.30 Activated Partial Thromboplast Time 32.0Sec Sodium Level 137mmol/L Potassium Level 3.8mmol/L Chloride Level 102mmol/L Carbon Dioxide Level 29mmol/L Anion Gap 10 Blood Urea Nitrogen 5mg/dl Creatinine 0.80mg/dl Glucose Level 89mg/dl Calcium Level 7.3mg/dl Total Bilirubin 0.4mg/dl Direct Bilirubin 0.00mg/dl Indirect Bilirubin 0.4mg/dl Aspartate Amino Transf (AST/SGOT) 38IU/L Alanine Aminotransferase (ALT/SGPT) 45IU/L Alkaline Phosphatase 54IU/L Total Protein 6.6g/dl Albumin 2.8g/dl Globulin 3.80g/dl Albumin/Globulin Ratio 0.73 Lipase 76U/L Bedside Urine pH (LAB) 7.0 Bedside Urine Protein (LAB) Negative Bedside Urine Glucose (UA) Negative Bedside Urine Ketones (LAB) Negative Bedside Urine Blood Trace-lysed Bedside Urine Nitrite (LAB) Negative Bedside Urine Leukocyte Esterase (L Trace Current Medications Medications (Trade) Dose Ordered Sig/Eli Route PRN Reason Start Time Stop Time Status Last Admin Dose Admin Morphine Sulfate (morphine) 2 mg ONCE ONCE IV 02/01/17 21:30 02/01/17 21:31 DC 02/01/17 21:27 Ondansetron HCl 4 mg 4 mg ONCE STAT IV 02/01/17 21:13 02/01/17 21:16 DC 02/01/17 21:26 Ciprofloxacin/ Dextrose 200 ml @ 200 mls/hr ONCE ONCE IVPB 02/01/17 21:30 02/01/17 22:29 Metronidazole (Flagyl 500 Mg (Pmx)) 100 ml @ 100 mls/hr ONCE ONCE IVPB 02/01/17 21:30 02/01/17 22:29 02/01/17 21:27 Procedures/MDM [place] [address] Radiology Main Line: [phone] DIAGNOSTIC IMAGING REPORT Patient: RISA HANKINS : 1940 Age: 76 Sex: F MR #: [id number] DOS: 02/01/171918 Ordering MD: YAEL MCCORMICK MD Location: E/R Room/Bed: PROCEDURE: CT Abdomen and Pelvis without contrast. CLINICAL INDICATION: Abdominal and pelvic pain. TECHNIQUE: CT scan of the abdomen and pelvis without contrast was performed. Coronal and sagittal reformatted images were obtained from the axial source images. Images were reviewed on a high-resolution PACS workstation. Total exam DLP is 658.77 mGy-cm. CTDIvol is 12.97 mGy. One or more of the following dose reduction techniques were used: Automated exposure control, adjustment of the mA and/or kV according to patient size, use of iterative reconstruction technique. COMPARISON: Ultrasound of the abdomen and retroperitoneum dated 01/02/2017. FINDINGS: The lung bases are normal. There is no pleural effusion. There is enlargement of the left lobe of liver which may indicate cirrhosis. There is no focal hepatic lesion. Hepatic attenuation is normal. The gallbladder is distended and there is mild surrounding mesenteric edema which may indicate cholecystitis. No definite gallstones are visualized and there is no free fluid around the gallbladder. The spleen is normal in size. There is no focal splenic lesion. Both adrenals are normal with no enlargement or mass. The pancreas is unremarkable with no mass or evidence of pancreatitis. There is no renal mass or hydronephrosis. There is no renal calculus or ureteral calculus. The abdominal aorta is not dilated. There is calcification in the wall of the aorta consistent with atherosclerosis. There is no retroperitoneal lymphadenopathy or mass. There is no pelvic lymphadenopathy or mass. The bladder and distal ureters are normal. The periappendiceal region is unremarkable with no evidence of appendicitis. There is diverticulosis of the colon without evidence of diverticulitis. There is mild mesenteric edema in the region of the hepatic flexure which may be related to gallbladder disease or colitis. The bowel and mesentery are otherwise normal. There is no free fluid or free gas. There are old healed fractures of the right inferior pubic ramus. There are mild degenerative changes of the spine. There is no acute fracture or lytic lesion. IMPRESSION: 1. Enlargement of the left lobe of liver which may indicate cirrhosis. 2. Distended gallbladder with mild surrounding mesenteric edema. This may indicate cholecystitis. Correlation with gallbladder ultrasound advised. 3. Atherosclerosis. 4. Diverticulosis of the colon without evidence of diverticulitis. 5. Mild mesenteric edema in the right upper quadrant which may be related to gallbladder disease or colitis. 6. Old healed fractures of the right inferior pubic ramus. 7. Mild degenerative changes of the spine. RPTAT: QQ .Angel Lazo MD, MD Date Time Electronically viewed and signed by .Angel Lazo MD, MD on 02/01/2017 21:09 .R/ CC: YAEL MCCORMICK MD [place] [address] Radiology Main Line: [phone] DIAGNOSTIC IMAGING REPORT Patient: RISA HANKINS : 1940 Age: 76 Sex: F MR #: [id number] DOS: 02/01/172112 Ordering MD: YAEL MCCORMICK MD Location: E/R Room/Bed: PROCEDURE: US Abdomen. CLINICAL INDICATION: Abdominal pain and fever. TECHNIQUE: Multiple real-time images were acquired of the patient's abdomen and retroperitoneum utilizing a high resolution transducer. COMPARISON: None FINDINGS: The pancreas is normal. Liver is identified measuring at least 15.5 cm in length. The gallbladder wall measures 1.8 mm. The common bile duct measures 4.6 mm which is normal. The main portal vein is patent. The right kidney measures 10.5 cm in length. IMPRESSION: 1. Normal limited abdominal sonogram. RPTAT:AAJJ Physician Luigi Date Time Electronically viewed and signed by Henri Benedict Physician on 02/01/2017 21:57 JM/ CC: YAEL MCCORMICK MD MEDICAL MAKING DECISION: The patient is a 76-year-old female, presenting with acute abdominal pain, most likely due to acute colitis. He was treated with Cipro IV, Flagyl IV for acute colitis, morphine 2 mg IV for pain and Zofran 4 mg IV for nausea with good response The differential diagnoses considered include but are not limited to cholelithiasis, cholecystitis, cystitis, pancreatitis, hepatitis, gastritis, peptic ulcer disease, gastric ulcer, appendicitis, diverticulitis, cholangitis, choledocholithiasis, partial small bowel obstruction. Consultation: I discussed the patient with the on-call general surgeon Dr. Mcintosh for possible acute cholecystitis. He was made aware of the lab, the treatment, the patient condition. He accepted the consult at 1010 Departure Diagnosis: Primary Impression: Acute colitis Additional Impression: Thrombocytopenia Condition: Stable Comments I discussed the findings with the patient. I discussed the patient with the on- call hospitalist Dr. Juarez who was made aware of the lab, the treatment, the patient condition. The patient is admitted to [facility] at 10:20 PM YAEL MCCORMICK MD February 01, 2017 19:10
[2017-02-01 19:37] LABS: ADD SCAN DIFF NO
[2017-02-01 19:53] LABS: BASOPHILS % 0.6 % (0.0-2.0); EOSINOPHILS # 0.3 10^3/ul (0.0-0.5); EOSINOPHILS % 4.3 % (0.0-7.0); HEMATOCRIT 39.9 % (37.0-47.0); HEMOGLOBIN 13.2 g/dl (12.0-16.0); LYMPHOCYTES # 2.1 10^3/ul (0.8-2.9); LYMPHOCYTES % 29.8 % (15.0-51.0); MEAN CORPUSCULAR HEMOGLOBIN 32.2 pg (29.0-33.0); MEAN CORPUSCULAR HGB CONC 33.1 g/dl (32.0-37.0); MEAN CORPUSCULAR VOLUME 97.3 fl (82.0-101.0); MEAN PLATELET VOLUME 11.3 fl (7.4-10.4); MONOCYTE # 0.6 10^3/ul (0.3-0.9); MONOCYTES % 8.4 % (0.0-11.0); NEUTROPHILS % 56.6 % (39.0-77.0); PLATELET COUNT 136 10^3/UL (140-415); RED CELL DISTRIBUTION WIDTH 14.6 % (11.5-14.5)
[2017-02-01 19:55] LABS: ALBUMIN 2.8 g/dl (3.3-4.9)
[2017-02-01 19:56] LABS: INR 1.3; POTASSIUM 3.8 mmol/L (3.5-5.1); PROTIME 16.3 Sec (12.2-14.2); PT RATIO 1.3
[2017-02-01 19:58] LABS: ALBUMIN/GLOBULIN RATIO 0.73; BILIRUBIN,INDIRECT 0.4 mg/dl (0-1.1); BILIRUBIN,TOTAL 0.4 mg/dl (0.2-1.3); CREATININE 0.8 mg/dl (0.44-1.00); TOTAL PROTEIN 6.6 g/dl (6.1-8.1)
[2017-02-01 19:59] LABS: CALCIUM 7.3 mg/dl (8.4-10.2)
[2017-02-01] MEDS ORDERED: RANI150T5 PO (20:24)
[2017-02-01] MEDS ORDERED: PANT40TA4 PO (20:24)
[2017-02-01] MEDS ORDERED: GABA100C14 PO (20:25)
[2017-02-01] MEDS ORDERED: METR500T PO (20:25)
[2017-02-01] MEDS ORDERED: ALBU18HF INHALATION (20:25)
[2017-02-01 20:35] LABS: PLATELET ESTIMATE PLT APPEAR; PLATELETS CLUMPS FEW
--- NOTE | 2017-02-01 21:09 | RADRPT ---
PROCEDURE: CT Abdomen and Pelvis without contrast. CLINICAL INDICATION: Abdominal and pelvic pain. TECHNIQUE: CT scan of the abdomen and pelvis without contrast was performed. Coronal and sagittal reformatted images were obtained from the axial source images. Images were reviewed on a high-resolu [employer] PACS workstation. Total exam DLP is 658.77 mGy-cm. CTDIvol is 12.97 mGy. One or more of the f ollowing dose reduction techniques were used: Automated exposure control, adjustment of the mA and/o r kV according to patient size, use of iterative reconstruction technique. COMPARISON: Ultrasound of the abdomen and retroperitoneum dated 01/02/2017. FINDINGS: The lung bases are normal. There is no pleural effusion. There is enlargement of the left lobe of liver which may indicate cirrhosis. There is no focal hepa tic lesion. Hepatic attenuation is normal. The gallbladder is distended and there is mild surrounding mesenteric edema which may indicate libia cystitis. No definite gallstones are visualized and there is no free fluid around the gallbladder. The spleen is normal in size. There is no focal splenic lesion. Both adrenals are normal with no enlargement or mass. The pancreas is unremarkable with no mass or evidence of pancreatitis. There is no renal mass or hydronephrosis. There is no renal calculus or ureteral calculus. The abdominal aorta is not dilated. There is calcification in the wall of the aorta consistent with atherosclerosis. There is no retroperitoneal lymphadenopathy or mass. There is no pelvic lymphadenopathy or mass. The bladder and distal ureters are normal. The periappendiceal region is unremarkable with no evidence of appendicitis. There is diverticulosis of the colon without evidence of diverticulitis. There is mild mesenteric e fady in the region of the hepatic flexure which may be related to gallbladder disease or colitis. T he bowel and mesentery are otherwise normal. There is no free fluid or free gas. There are old healed fractures of the right inferior pubic ramus. There are mild degenerative bueno es of the spine. There is no acute fracture or lytic lesion. IMPRESSION: 1. Enlargement of the left lobe of liver which may indicate cirrhosis. 2. Distended gallbladder with mild surrounding mesenteric edema. This may indicate cholecystitis. Correlation with gallbladder ultrasound advised. 3. Atherosclerosis. 4. Diverticulosis of the colon without evidence of diverticulitis. 5. Mild mesenteric edema in the right upper quadrant which may be related to gallbladder disease or colitis. 6. Old healed fractures of the right inferior pubic ramus. 7. Mild degenerative changes of the spine. RPTAT: QQ .Angel Lazo MD, MD Date Time Electronically viewed and signed by .Angel Lazo MD, on 02/01/2017 21:09 .R/
[2017-02-01] MEDS ORDERED: ONDANSETRON 4 MG INJ IV STA (21:13)
[2017-02-01 21:19] LABS: URINE BLOOD (Dip) POC Trace-lysed (NEGATIVE)
[2017-02-01] MEDS ORDERED: CIPROFLOXACIN 400MG/D5W 200 ML IVPB ONE (21:30)
[2017-02-01] MEDS ORDERED: morphine 2 MG INJ IV ONE (21:30)
[2017-02-01] MEDS ORDERED: metroNIDAZOLE 500 MG/NS (PMX) 100 ML IVPB ONE (21:30)
--- NOTE | 2017-02-01 21:57 | RADRPT ---
PROCEDURE: US Abdomen. CLINICAL INDICATION: Abdominal pain and fever. TECHNIQUE: Multiple real-time images were acquired of the patient's abdomen and retroperitoneum ut ilizing a high resolution transducer. COMPARISON: None FINDINGS: The pancreas is normal. Liver is identified measuring at least 15.5 cm in length. The gallbladder wall measures 1.8 mm. The common bile duct measures 4.6 mm which is normal. The ma in portal vein is patent. The right kidney measures 10.5 cm in length. IMPRESSION: 1. Normal limited abdominal sonogram. RPTAT:AAJJ Physician Luigi Date Time Electronically viewed and signed by Physician Luigi on 02/01/2017 21:57 ART/
[2017-02-01 23:39] VITALS: BP 122/59; RESP 16
[2017-02-01] MEDS: DEXTROSE 5%-0.45% NACL 1,000 ML IV SCH (23:57)
[2017-02-02] MEDS ORDERED: morphine 4 MG/ML VIAL IV PRN
[2017-02-02] MEDS: PIPER-TAZO 3.375 GM IV (PMX) 100 ML IVPB SCH ×5 (00:02→23:35)
[2017-02-02 06:02] LABS: ADD SCAN DIFF NO
[2017-02-02 06:14] LABS: BASOPHILS % 0.6 % (0.0-2.0); EOSINOPHILS # 0.2 10^3/ul (0.0-0.5); EOSINOPHILS % 2.8 % (0.0-7.0); HEMATOCRIT 38.1 % (37.0-47.0); HEMOGLOBIN 12.5 g/dl (12.0-16.0); LYMPHOCYTES # 1.2 10^3/ul (0.8-2.9); LYMPHOCYTES % 22.3 % (15.0-51.0); MEAN CORPUSCULAR HEMOGLOBIN 31.6 pg (29.0-33.0); MEAN CORPUSCULAR HGB CONC 32.8 g/dl (32.0-37.0); MEAN CORPUSCULAR VOLUME 96.2 fl (82.0-101.0); MEAN PLATELET VOLUME 11.8 fl (7.4-10.4); MONOCYTE # 0.5 10^3/ul (0.3-0.9); MONOCYTES % 9.6 % (0.0-11.0); NEUTROPHIL # 3.5 10^3/ul (1.6-7.5); NEUTROPHILS % 64.3 % (39.0-77.0); RED BLOOD COUNT 3.96 10^6/ul (4.20-5.40); RED CELL DISTRIBUTION WIDTH 14.6 % (11.5-14.5); WHITE BLOOD COUNT 5.4 10^3/ul (4.8-10.8)
[2017-02-02 06:40] LABS: ALBUMIN 2.5 g/dl (3.3-4.9); POTASSIUM 3.6 mmol/L (3.5-5.1)
[2017-02-02 06:42] LABS: CREATININE 0.68 mg/dl (0.44-1.00)
[2017-02-02 06:43] LABS: ALBUMIN/GLOBULIN RATIO 0.69; BILIRUBIN,INDIRECT 0.2 mg/dl (0-1.1); BILIRUBIN,TOTAL 0.2 mg/dl (0.2-1.3); CALCIUM 6.7 mg/dl (8.4-10.2); PHOSPHORUS 1.7 mg/dl (2.5-4.9); TOTAL PROTEIN 6.1 g/dl (6.1-8.1)
[2017-02-02 06:44] LABS: MAGNESIUM 1.9 mg/dl (1.7-2.5)
[2017-02-02 08:27] VITALS: BP 116/57; RESP 18
--- NOTE | 2017-02-02 08:36 | HP ---
DATE OF ADMISSION: 02/01/2017 CHIEF COMPLAINT: Weakness, fever, diarrhea. HISTORY OF PRESENT ILLNESS: The patient is a 76-year-old female with a history of hypertension, CHRIS D, left leg DVT, and pyelonephritis, who presented to the emergency department with the above stated chief complaint. The patient was admitted here by myself exactly a month ago on 01/02/2017, after she presented with flank pain and fever. At that time, workup showed multidrug resistant ESBL E. 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 She was also diagnosed with DVT 3 weeks prior to her last hospitalization at [facility] and was on Coumadin at that time. The patient is now coming back with fever, diarrhea, minimal abdo khloe pain and generalized weakness. She reported a fever of almost 102 at home. When she presented to the ER today, her vitals were unremarkable with a temperature of 98.9. CBC an d CMP are also unremarkable with WBC of only 7. Abdominal ultrasound was read as normal. CT abdome n and pelvis without contrast showed enlargement of the left lobe of the liver which may indicate ci rrhosis, also mild mesenteric edema in the right upper quadrant which may be related to gallbladder disease or colitis. There is diverticulosis of the colon without evidence of diverticulitis. There is distended gallbladder with mild surrounding mesenteric edema, likely representing cholecystitis. Also noted was an old healed fracture of the right inferior pubic ramus. Dr. Mcintosh, the on-call surgeon, was notified about patient's CT scan findings and the patient was given Cipro and Flagyl a nd admitted for further management. REVIEW OF SYSTEMS: A 12-point review of systems was performed, negative except as mentioned in the HPI. PAST MEDICAL HISTORY: As per HPI. SOCIAL HISTORY: Denied any use of tobacco, alcohol or illicit drug use. ALLERGIES: NO KNOWN DRUG ALLERGIES. HOME MEDICATIONS: 1. Albuterol. 2. Eliquis. 3. Cozaar. 4. Lopressor. 5. Gabapentin. 6. Tramadol. 7. Singulair. 8. Protonix. 9. Ranitidine. PHYSICAL EXAMINATION: VITAL SIGNS: Stable. GENERAL: No acute distress. She is lying in bed. HEENT: No obvious head deformity. Pupils are reactive to light. Extraocular muscles intact. CARDIOVASCULAR: Regular rate and rhythm with no extra sounds. LUNGS: Clear. ABDOMEN: Soft. There is some discomfort diffusely, but mainly there is tenderness to deep palpatio n in the left lower quadrant and right upper quadrant area, with no guarding, no rebound tenderness, no rigidity. EXTREMITIES: No edema. NEUROLOGIC: No focal deficits. LABORATORY: CBC and CMP have been within acceptable range except an albumin of 2.8. IMAGING: Right upper quadrant ultrasound and CT abdomen and pelvis without contrast with results as mentioned in the HPI. IMPRESSION: 1. Abdominal pain, diarrhea, and self-reported fever, likely secondary to colitis. 2. Distended gallbladder with edema, probably cholecystitis. 3. Enlarged left lobe of liver, possibly from cirrhosis. 4. Recently diagnosed pyelonephritis, secondary to extended-spectrum beta-lactamase Escherichia col i. 5. History of hypertension, blood pressure within goal. 6. Left leg deep venous thrombosis, on Eliquis. 7. History of gastroesophageal reflux disease. PLAN: She will be kept n.p.o. except medications and will be placed on Zosyn. We will provide IV f luids and pain medications. She is awaiting surgical evaluation. We will order stool culture inclu ding C. difficile. She will be continued with her home medications with adjustment as needed. Further workup and management per clinical course. Dictated By: TORY ELAM/KAY Conf#: [id number] DID#: [id number]
[2017-02-02] MEDS: APIXABAN 5 MG TABLET PO SCH ×2 (09:02→20:35)
[2017-02-02 11:07] LABS: PLATELET COUNT 124 10^3/UL (140-415)
[2017-02-02] MEDS: DEXTROSE 5%-0.45% NACL 1,000 ML IV SCH ×3 (11:17→23:35)
--- NOTE | 2017-02-02 15:21 | PN ---
Date/Time of Note Date/Time of Note DATE: 02/02/17 TIME: 15:14 Assessment/Plan Lines/Catheters IV Catheter Type (from Nrs): Peripheral IV Mauro in Place (from Nrs): No Assessment/Plan Chief Complaint/Hosp Course 1. Abdominal pain, fever, ? probable colitis -abx -judicious fluid management -supportive measure 2. BMI 40 -diet and exercise optimization 3. Thrombocytopenia ? 2nd Cirrhosis -close monitoring -GI and medical optimization 4. GERD -ppi 5. HTN -diet/med optimization -encourage weight loss 6. Recent Pyelonephritis with +UA -abx -cx 7. LE DVT on Coumadin -anticoagulation Thank you, # [id number] Problems: Subjective 24 Hr Interval Summary Pain improved but persists. No f/c. No cp/sob. No cough. No cruz/dizzy/visual or neuro changes. No dysuria. Stool more formed this am Exam/Review of Systems Vital Signs Vitals Vital Signs Date Time Temp Pulse Resp B/P Pulse Ox O2 Delivery O2 Flow Rate FiO2 02/02/17 08:27 99.8 74 18 116/57 90 02/01/17 22:35 Room Air Intake and Output 02/01/17 02/01/17 02/02/17 15:00 23:00 07:00 Intake Total 700 ml Balance 700 ml Exam Constitutional: alert, obese, oriented, No distress Psych: nl mood/affect, No anxiety, No confusion Head: atraumatic, normocephalic Eyes: EOMI, PERRL, nl conjunctiva, No icteric ENMT: mucosa pink and moist, nl external ears & nose, nl lips & teeth Neck: non-tender, supple, No jvd Respiratory: normal air movement, No congested cough, No labored breathing Cardiovascular: regular rate and rhythm, No edema Gastrointestinal: soft, tender (minimally diffusely), No distended, No rebound or guarding Musculoskeletal: nl extremities to inspection, nl gait and stance, No joint tenderness Extremities: normal pulses, No calf tenderness, No edema Neurological: nl mental status, nl speech, nl strength Skin: nl turgor, No diaphoresis, No rash or lesions Lymph: nl lymph nodes Results Free Text/Dictation CT: 1. Enlargement of the left lobe of liver which may indicate cirrhosis. 2. Distended gallbladder with mild surrounding mesenteric edema. This may indicate cholecystitis. Correlation with gallbladder ultrasound advised. 3. Atherosclerosis. 4. Diverticulosis of the colon without evidence of diverticulitis. 5. Mild mesenteric edema in the right upper quadrant which may be related to gallbladder disease or colitis. 6. Old healed fractures of the right inferior pubic ramus. 7. Mild degenerative changes of the spine. Result Diagram: 02/02/17 0503 02/02/17 0503 JAMES SAMANO MD February 02, 2017 15:21
--- NOTE | 2017-02-02 16:42 | CONS ---
DATE OF ADMISSION: 02/01/2017 DATE OF CONSULTATION: 02/01/2017 TYPE OF CONSULTATION: Surgical. REFERRING PHYSICIAN: Lroenzo De Leon MD CHIEF COMPLAINT 1. Abdominal pain. 2. Diarrhea. 3. Thrombocytopenia. 4. Hypoalbuminemia. HISTORY OF PRESENT ILLNESS: Dayna Castellanos is a 76-year-old female with multiple comorbiditi es who presents with diarrhea for the past 5 days associated with epigastric and right upper quadran t abdominal pain and fever of 101.6. She has been recently treated for her pyelonephritis, about 10 days prior and was treated with antibiotics. She reports weakness, but no chest pain, shortness of breath. No chills. No cough. No seizure. No blood per mouth or rectum. No dysuria. No vomitin g. No trauma or sick contacts. PAST MEDICAL HISTORY: 1. Hypertension. 2. GERD. 3. Left lower extremity deep venous thrombosis on Coumadin. 4. Recent pyelonephritis and sepsis. 5. Current diarrhea. 6. Thrombocytopenia. 7. Hypoalbuminemia. 8. Hypocalcemia. 9. Mild coagulopathy. 10. Possible UTI. 11. BMI of 40. PAST SURGICAL HISTORY: 1. Eye surgery. 2. Right foot surgery. MEDICATIONS: As per MAR. ALLERGIES: MULTIPLE INCLUDING MILK PRODUCTS, CAULIFLOWER, NUTS AND SHRIMP. REVIEW OF SYSTEMS: A 12-point review of systems negative unless addressed in HPI. FAMILY HISTORY: Noncontributory. PHYSICAL EXAMINATION: VITAL SIGNS: Temperature is 98.9, pulse 60s to 70s, blood pressure 132/66. GENERAL: No acute distress. Somewhat uncomfortable. BMI of 40. HEENT: Pupils equal and reactive. No scleral icterus. Mucous membranes are moist. NECK: Supple, no JVD. PULMONARY: Normal respiratory effort. No wheezing. HEART: S1, S2 present. ABDOMEN: Soft, tender in all 4 quadrants without rebound, guarding, rigidity. EXTREMITIES: No edema. VASCULAR: Cap refill less than 2 seconds. NEUROLOGIC: Alert, oriented, moves all 4 extremities grossly. LABORATORY AND RADIOGRAPHIC: As per chart and HPI. ASSESSMENT AND PLAN: Dayna Castellanos is a 76-year-old female with multiple significant comorb idities. 1. Abdominal pain with fevers and probable colitis. Continue antibiotics, judicious fluid manageme nt and supportive measures. I doubt the patient needs surgical intervention at this time. 2. BMI of 40. Encouraged diet and exercise optimization. 3. Thrombocytopenia, probably secondary to cirrhosis as suggested per CT. Continue close monitorin g and GI and medical optimization. 4. Gastroesophageal reflux disease. Continue on PPI. 5. Hypertension. Continue with diet and medication optimization and encourage weight loss. 6. Recent pyelonephritis with a positive UA. Continue antibiotics and culture. 7. Lower extremity deep venous thrombosis on Coumadin. Continue anticoagulation. Thank you very much for consulting me in this patient's care. Dictated By: JAMES CAMARGO/KAY Conf#: [id number] DID#: [id number]
--- NOTE | 2017-02-02 17:01 | PN ---
Date/Time of Note Date/Time of Note DATE: 02/02/17 TIME: 16:58 Assessment/Plan VTE Prophylaxis VTE Prophylaxis Intervention: other (eliquis) Lines/Catheters [facility] Per[facility] IV Urinary Cath still in place: No Assessment/Plan Chief Complaint/Hosp Course Assessment and plan 1. Abdominal pain secondary to colitis. Continue antibiotics for now. Monitor for clinical improvement. 2. Abdominal imaging with gallbladder edema and probable cholecystitis. Surgeon is following. Suspect no cholecystitis at this time. No plan for surgery. Continue the recommendations of surgeon 3. Recent diagnosis of pyelonephritis with ESBL. Follow-up on urine culture. Will adjust antibiotics accordingly 4. History of essential hypertension. Stable at present. Will provide with antihypertensives as needed 5. History of left leg DVT. Continue on Eliquis Disposition and plan: Continue antibiotics for now. Monitor for clinical improvement of colitis. Follow-up on urine culture. Discharged in medically stable and cleared by consultants Discussed plan of care with Problems: Subjective 24 Hr Interval Summary Free Text/Dictation still reports having some abdominal discomfort Exam/Review of Systems Vital Signs Vitals Vital Signs Date Time Temp Pulse Resp B/P Pulse Ox O2 Delivery O2 Flow Rate FiO2 02/02/17 08:27 99.8 74 18 116/57 90 02/01/17 22:35 Room Air Intake and Output 02/01/17 02/01/17 02/02/17 15:00 23:00 07:00 Intake Total 700 ml Balance 700 ml Exam Constitutional: alert, oriented Neck: non-tender Respiratory: normal air movement Cardiovascular: regular rate and rhythm Gastrointestinal: soft, tender Extremities: No edema Neurological: [employer] II-XII intact, nl mental status Skin: nl turgor Results Result Diagram: 02/02/17 0503 02/02/17 0503 Results 24 hrs Laboratory Tests Test 02/01/17 19:25 02/01/17 21:21 02/02/17 05:03 White Blood Count 7.0 5.4 # Red Blood Count 4.10 L 3.96 L Hemoglobin 13.2 12.5 Hematocrit 39.9 38.1 Mean Corpuscular Volume 97.3 96.2 Mean Corpuscular Hemoglobin 32.2 31.6 Mean Corpuscular Hemoglobin Concent 33.1 32.8 Red Cell Distribution Width 14.6 H 14.6 H Platelet Count 136 L 124 L Mean Platelet Volume 11.3 H 11.8 H Neutrophils % 56.6 64.3 Lymphocytes % 29.8 22.3 Monocytes % 8.4 9.6 Eosinophils % 4.3 2.8 Basophils % 0.6 0.6 Nucleated Red Blood Cells % 0.0 0.0 Neutrophils # 4.0 3.5 Lymphocytes # 2.1 1.2 Monocytes # 0.6 0.5 Eosinophils # 0.3 0.2 Basophils # 0.0 0.0 Nucleated Red Blood Cells # 0.0 0.0 Platelet Estimate PLT APPEAR Clumped Platelets FEW Large Platelets FEW Prothrombin Time 16.3 H Prothrombin Time Ratio 1.3 INR International Normalized Ratio 1.30 Activated Partial Thromboplast Time 32.0 Sodium Level 137 135 Potassium Level 3.8 3.6 Chloride Level 102 103 Carbon Dioxide Level 29 27 Anion Gap 10 9 Blood Urea Nitrogen 5 L 4 L Creatinine 0.80 0.68 Glucose Level 89 112 Calcium Level 7.3 L 6.7 L Total Bilirubin 0.4 0.2 Direct Bilirubin 0.00 0.00 Indirect Bilirubin 0.4 0.2 Aspartate Amino Transf (AST/SGOT) 38 35 Alanine Aminotransferase (ALT/SGPT) 45 40 Alkaline Phosphatase 54 44 Total Protein 6.6 6.1 Albumin 2.8 L 2.5 L Globulin 3.80 H 3.60 H Albumin/Globulin Ratio 0.73 0.69 Lipase 76 Bedside Urine pH (LAB) 7.0 Bedside Urine Protein (LAB) Negative Bedside Urine Glucose (UA) Negative Bedside Urine Ketones (LAB) Negative Bedside Urine Blood Trace-lysed H Bedside Urine Nitrite (LAB) Negative Bedside Urine Leukocyte Esterase (L Trace H Phosphorus Level 1.7 L Magnesium Level 1.9 Medications Medications Current Medications Dextrose/Sodium Chloride 1,000 ml @ 100 mls/hr Q10H IV Last administered on t 11:17; Admin Dose 100 MLS/HR; Start 02/02/17 at 00:00 Piperacillin Sod/ Tazobactam Sod (Zosyn 3.375gm/ 100 ml (Pmx)) 100 ml @ 200 mls /hr Q6 IVPB Last administered on 02/02/17 12:00; Admin Dose 200 MLS/HR; Start 02/02/17 at 00:00 Morphine Sulfate (morphine) 3 mg Q4H PRN IV PAIN; Start 02/02/17 at 00:00 Apixaban (Eliquis) 5 mg BID PO Last administered on 02/02/17t 09:02; Admin Dose 5 MG; Start 02/02/17 at 09:00 GREER TALLEY February 02, 2017 17:01
[2017-02-02 19:40] VITALS: BP 100/52; RESP 18
[2017-02-03] MEDS: PIPER-TAZO 3.375 GM IV (PMX) 100 ML IVPB SCH ×4 (05:13→23:01)
[2017-02-03 08:23] VITALS: BP 94/55; RESP 18
[2017-02-03] MEDS: APIXABAN 5 MG TABLET PO SCH ×2 (08:25→20:18)
--- NOTE | 2017-02-03 10:16 | PN ---
Date/Time of Note Date/Time of Note DATE: 02/03/17 TIME: 10:14 Assessment/Plan VTE Prophylaxis VTE Prophylaxis Intervention: other (Eliquis) Lines/Catheters IV [facility] Type (from [facility]): Peripheral IV Urinary Cath still in place: No Assessment/Plan Chief Complaint/Hosp Course Assessment and plan 1. Abdominal pain secondary to colitis. Continue antibiotics for now. Appears to be improving. Start on diet today 2. Abdominal imaging with gallbladder edema and probable cholecystitis. Surgeon is following. Suspect no cholecystitis at this time. No plan for surgery. Continue the recommendations of surgeon 3. Recent diagnosis of pyelonephritis with ESBL. Urine culture negative for any bacteria 4. History of essential hypertension. Stable at present. Will provide with antihypertensives as needed 5. History of left leg DVT. Continue on Eliquis Disposition and plan: Continue antibiotics for now. Will try starting on diet today. DC when medically stable and cleared by consultants Discussed plan of care with Problems: Subjective 24 Hr Interval Summary Free Text/Dictation Reports no pain in abdomen at this time. Exam/Review of Systems Vital Signs Vitals Vital Signs Date Time Temp Pulse Resp B/P Pulse Ox O2 Delivery O2 Flow Rate FiO2 02/03/17 08:23 99.1 70 18 94/55 96 02/01/17 22:35 Room Air Intake and Output 02/02/17 02/02/17 02/03/17 15:00 23:00 07:00 Intake Total 500 ml 1720 ml 900 ml Balance 500 ml 1720 ml 900 ml Exam Constitutional: alert, oriented Neck: non-tender Respiratory: normal air movement Cardiovascular: regular rate and rhythm Gastrointestinal: soft, tender Extremities: No edema Neurological: GRAD[employer] RN II-XII intact, nl mental status Skin: nl turgor Results Result Diagram: 02/02/17 0503 02/02/17 0503 Medications Medications Current Medications Dextrose/Sodium Chloride 1,000 ml @ 100 mls/hr Q10H IV Last administered on 23:35; Admin Dose 100 MLS/HR; Start 02/02/17 at 00:00 Piperacillin Sod/ Tazobactam Sod (Zosyn 3.375gm/ 100 ml (Pmx)) 100 ml @ 200 mls /hr Q6 IVPB Last administered on 02/03/17 05:13; Admin Dose 200 MLS/HR; Start 02/02/17 at 00:00 Morphine Sulfate (morphine) 3 mg Q4H PRN IV PAIN; Start 02/02/17 at 00:00 Apixaban (Eliquis) 5 mg BID PO Last administered on 02/03/17 08:25; Admin Dose 5 MG; Start 02/02/17 at 09:00 GREER TALLEY February 03, 2017 10:16
[2017-02-03] MEDS: DEXTROSE 5%-0.45% NACL 1,000 ML IV SCH ×2 (11:53→22:59)
[2017-02-03 20:12] VITALS: BP 103/53; RESP 20
--- NOTE | 2017-02-03 21:15 | PN ---
Date/Time of Note Date/Time of Note DATE: 02/03/17 TIME: 21:13 Assessment/Plan Lines/Catheters IV Catheter Type (from Nrs): Peripheral IV Mauro in Place (from Nrs): No Assessment/Plan Chief Complaint/Hosp Course 1. Abdominal pain, fever, ? probable colitis. Improving. -abx -judicious fluid management -supportive measure 2. BMI 40 -diet and exercise optimization 3. Thrombocytopenia ? 2nd Cirrhosis -close monitoring -GI and medical optimization 4. GERD -ppi 5. HTN -diet/med optimization -encourage weight loss 6. Recent Pyelonephritis with +UA -abx -cx 7. LE DVT on Coumadin -anticoagulation Thank you, Problems: Subjective 24 Hr Interval Summary Pain improved. No f/c. No cp/sob. No cough. No cruz/dizzy/visual or neuro changes. No dysuria. Stool more formed. Exam/Review of Systems Vital Signs Vitals Vital Signs Date Time Temp Pulse Resp B/P Pulse Ox O2 Delivery O2 Flow Rate FiO2 02/03/17 08:23 99.1 70 18 94/55 96 02/01/17 22:35 Room Air Intake and Output 02/02/17 02/02/17 02/03/17 15:00 23:00 07:00 Intake Total 500 ml 1720 ml 900 ml Balance 500 ml 1720 ml 900 ml Exam Free Text/Dictation Constitutional: alert, obese, oriented, No distress Psych: nl mood/affect, No anxiety, No confusion Head: atraumatic, normocephalic Eyes: EOMI, PERRL, nl conjunctiva, No icteric ENMT: mucosa pink and moist, nl external ears & nose, nl lips & teeth Neck: non-tender, supple, No jvd Respiratory: normal air movement, No congested cough, No labored breathing Cardiovascular: regular rate and rhythm, No edema Gastrointestinal: soft, tender (minimally diffusely), No distended, No rebound or guarding Musculoskeletal: nl extremities to inspection, nl gait and stance, No joint tenderness Extremities: normal pulses, No calf tenderness, No edema Neurological: nl mental status, nl speech, nl strength Skin: nl turgor, No diaphoresis, No rash or lesions Lymph: nl lymph nodes Results Result Diagram: 02/02/17 0503 02/02/17 0503 JAMES SAMANO MD February 03, 2017 21:15
[2017-02-04] MEDS: PIPER-TAZO 3.375 GM IV (PMX) 100 ML IVPB SCH ×4 (05:12→23:21)
[2017-02-04 06:25] LABS: ADD SCAN DIFF NO
[2017-02-04 06:38] LABS: BASOPHILS % 0.7 % (0.0-2.0); EOSINOPHILS # 0.4 10^3/ul (0.0-0.5); EOSINOPHILS % 9.3 % (0.0-7.0); HEMATOCRIT 37.9 % (37.0-47.0); HEMOGLOBIN 12.4 g/dl (12.0-16.0); LYMPHOCYTES # 1.2 10^3/ul (0.8-2.9); LYMPHOCYTES % 27.8 % (15.0-51.0); MEAN CORPUSCULAR HEMOGLOBIN 31.7 pg (29.0-33.0); MEAN CORPUSCULAR HGB CONC 32.7 g/dl (32.0-37.0); MEAN CORPUSCULAR VOLUME 96.9 fl (82.0-101.0); MEAN PLATELET VOLUME 11.4 fl (7.4-10.4); MONOCYTE # 0.4 10^3/ul (0.3-0.9); MONOCYTES % 8.6 % (0.0-11.0); NEUTROPHIL # 2.4 10^3/ul (1.6-7.5); NEUTROPHILS % 53.4 % (39.0-77.0); PLATELET COUNT 109 10^3/UL (140-415); RED BLOOD COUNT 3.91 10^6/ul (4.20-5.40); RED CELL DISTRIBUTION WIDTH 14.6 % (11.5-14.5); WHITE BLOOD COUNT 4.4 10^3/ul (4.8-10.8)
[2017-02-04 07:07] LABS: CALCIUM 7.3 mg/dl (8.4-10.2); CREATININE 0.61 mg/dl (0.44-1.00); POTASSIUM 3.5 mmol/L (3.5-5.1)
[2017-02-04 07:53] VITALS: BP 101/51; RESP 18
[2017-02-04] MEDS: APIXABAN 5 MG TABLET PO SCH ×2 (08:40→20:07)
[2017-02-04] MEDS: DEXTROSE 5%-0.45% NACL 1,000 ML IV SCH (12:17)
[2017-02-04] MEDS ORDERED: ONDANSETRON 4 MG INJ IV PRN (13:00)
--- NOTE | 2017-02-04 13:20 | PN ---
DATE: 02/04/2017 TIME OF EVALUATION: 12:15 p.m. SUBJECTIVE DATA: Denies any abdominal pain, but complained of 3 episodes of diarrhea. OBJECTIVE DATA: VITAL SIGNS: Temperature 98.7, pulse 60, respiratory rate 18, blood pressure 101/51, oxygen saturation 94% on room air. GENERAL: A 76-year-old female patient lying in bed in no apparent distress. HEENT: Head normocephalic and atraumatic. Eyes: Anicteric sclerae. Conjunctivae clear. ENT: Nasal septum is midline. Oral mucosa is moist. NECK: Supple. No JVD noticed. RESPIRATORY: Bilaterally clear to auscultation. No adventitious breath sounds heard. No use of accessory muscles of respiration. CARDIAC: Regular rate and rhythm. S1 and S2 heard. ABDOMEN: Soft, minimal right upper quadrant tenderness. Bowel sounds are positive in all 4 quadrants. GENITOURINARY: Deferred. EXTREMITIES: No cyanosis, no clubbing, no edema. Peripheral pulses palpable. NEUROLOGIC: The patient is awake, alert and oriented. Cranial nerves are grossly intact. LABORATORY AND DIAGNOSTIC DATA: WBC 4.4, hemoglobin 12.4, hematocrit 37.9, platelet count 179. Sodium 142, potassium 3.5, chloride 104, carbon on 108, carbon dioxide 27, anion gap 11, BUN 4, creatinine 4.64, glucose 100, calcium 7.3. ASSESSMENT: 1. Acute abdominal pain, most probably secondary to colitis. Continue antibiotics. The patient is currently tolerating a regular diet. Stool studies pending. 2. Distended gallbladder with mild surrounding mesenteric edema, status post evaluation by general surgeon. No indication for acute cholecystitis as per general surgery. Continue medical management. 3. Left lower extremity deep venous thrombosis. Continue Eliquis. 4. Thrombocytopenia, most probably secondary to enlargement of the liver that may indicate cirrhosis. We will monitor the patient for any bleeding. 5. Fluid, electrolytes and nutrition. Low cholesterol diet. 6. Deep venous thrombosis prophylaxis, on Eliquis. 7. Gastrointestinal prophylaxis. Histamine 2 receptor blockers. PLAN: 1. Continue current management. 2. Obtain stool studies. Case discussed with Dr. Moreau. EMILEE MOREAU MD, AM/KAY Conf#: [id number] DID#: [id number] [facility]
[2017-02-04] MEDS: FAMOTIDINE 20 MG TAB PO SCH (13:27)
[2017-02-04 20:02] VITALS: BP 113/54; RESP 16
[2017-02-04] MEDS: CALCIUM CARBONATE 500 MG CHEW TAB PO SCH (20:07)
--- NOTE | 2017-02-04 23:56 | PN ---
Date/Time of Note Date/Time of Note DATE: 02/04/17 TIME: 23:54 Assessment/Plan Lines/Catheters IV Catheter Type (from Nrs): Saline Lock Mauro in Place (from Nrs): No Assessment/Plan Chief Complaint/Hosp Course 1. Abdominal pain, fever, ? probable colitis. Improving. -abx -judicious fluid management -supportive measure 2. BMI 40 -diet and exercise optimization 3. Thrombocytopenia ? 2nd Cirrhosis -close monitoring -GI and medical optimization 4. GERD -ppi 5. HTN -diet/med optimization -encourage weight loss 6. Recent Pyelonephritis with +UA -abx -cx 7. LE DVT on Coumadin -anticoagulation Thank you, Problems: Subjective 24 Hr Interval Summary Pain improved. No f/c. No cp/sob. No cough. No cruz/dizzy/visual or neuro changes. No dysuria. Stool more formed. Exam/Review of Systems Vital Signs Vitals Vital Signs Date Time Temp Pulse Resp B/P Pulse Ox O2 Delivery O2 Flow Rate FiO2 02/04/17 20:02 98.1 81 16 113/54 96 02/01/17 22:35 Room Air Intake and Output 02/03/17 02/03/17 02/04/17 15:00 23:00 07:00 Intake Total 500 ml 1340 ml 1100 ml Balance 500 ml 1340 ml 1100 ml Exam Free Text/Dictation Constitutional: alert, obese, oriented, No distress Psych: nl mood/affect, No anxiety, No confusion Head: atraumatic, normocephalic Eyes: EOMI, PERRL, nl conjunctiva, No icteric ENMT: mucosa pink and moist, nl external ears & nose, nl lips & teeth Neck: non-tender, supple, No jvd Respiratory: normal air movement, No congested cough, No labored breathing Cardiovascular: regular rate and rhythm, No edema Gastrointestinal: soft, tender (minimally diffusely), No distended, No rebound or guarding Musculoskeletal: nl extremities to inspection, nl gait and stance, No joint tenderness Extremities: normal pulses, No calf tenderness, No edema Neurological: nl mental status, nl speech, nl strength Skin: nl turgor, No diaphoresis, No rash or lesions Lymph: nl lymph nodes Results Result Diagram: 02/04/17 0513 02/04/17 0513 JAMES SAMANO MD February 04, 2017 23:56
[2017-02-05] MEDS: PIPER-TAZO 3.375 GM IV (PMX) 100 ML IVPB SCH (05:30)
[2017-02-05 06:10] LABS: ADD SCAN DIFF NO
[2017-02-05 06:16] LABS: BASOPHILS % 0.7 % (0.0-2.0); EOSINOPHILS # 0.4 10^3/ul (0.0-0.5); EOSINOPHILS % 7.9 % (0.0-7.0); HEMATOCRIT 38.6 % (37.0-47.0); HEMOGLOBIN 12.8 g/dl (12.0-16.0); LYMPHOCYTES # 1.4 10^3/ul (0.8-2.9); LYMPHOCYTES % 25.1 % (15.0-51.0); MEAN CORPUSCULAR HEMOGLOBIN 31.8 pg (29.0-33.0); MEAN CORPUSCULAR HGB CONC 33.2 g/dl (32.0-37.0); MEAN CORPUSCULAR VOLUME 95.8 fl (82.0-101.0); MEAN PLATELET VOLUME 11.6 fl (7.4-10.4); MONOCYTE # 0.4 10^3/ul (0.3-0.9); NEUTROPHIL # 3.3 10^3/ul (1.6-7.5); NEUTROPHILS % 58.9 % (39.0-77.0); PLATELET COUNT 110 10^3/UL (140-415); RED BLOOD COUNT 4.03 10^6/ul (4.20-5.40); RED CELL DISTRIBUTION WIDTH 14.6 % (11.5-14.5); WHITE BLOOD COUNT 5.6 10^3/ul (4.8-10.8)
[2017-02-05 06:41] LABS: POTASSIUM 3.7 mmol/L (3.5-5.1)
[2017-02-05 06:43] LABS: CREATININE 0.6 mg/dl (0.44-1.00)
[2017-02-05 06:44] LABS: CALCIUM 7.2 mg/dl (8.4-10.2)
[2017-02-05 07:32] VITALS: BP 111/54; RESP 20
[2017-02-05 07:49] LABS: MAGNESIUM 1.7 mg/dl (1.7-2.5); PHOSPHORUS 1.2 mg/dl (2.5-4.9)
[2017-02-05] MEDS: FAMOTIDINE 20 MG TAB PO SCH (08:32)
[2017-02-05] MEDS: CALCIUM CARBONATE 500 MG CHEW TAB PO SCH ×3 (08:32→18:19)
[2017-02-05] MEDS: APIXABAN 5 MG TABLET PO SCH ×2 (08:32→21:02)
[2017-02-05] MEDS: CIPROFLOXACIN 400MG/D5W 200 ML IVPB SCH ×2 (12:44→21:02)
--- NOTE | 2017-02-05 12:46 | PDOCDIS ---
Discharge Instructions CONDITION Patient Condition: Good HOME CARE INSTRUCTIONS: Special Diet: low cholesterol. low fat ACTIVITY: Activity Restrictions: Slowly Increase Activity Rest between Activity Avoid heavy lifting Avoid Heavy Housework FOLLOW UP/APPOINTMENTS Appointments follow up with her own PMD in 1-2 weeks after discharge JAJA BOOTHE MD February 05, 2017 12:46
[2017-02-05] MEDS ORDERED: METR500T PO (12:47)
[2017-02-05] MEDS ORDERED: CIPR500T4 PO (12:48)
[2017-02-05] MEDS ORDERED: METO10TA92 PO (12:48)
[2017-02-05] MEDS ORDERED: LOPE2CAP PO (12:48)
[2017-02-05] MEDS ORDERED: POTASSIUM PHOSPHATE 20 MEQ in SOD CHLORIDE 0.9% 250 ML IVPB SCH (13:30)
[2017-02-05] MEDS: metroNIDAZOLE 500 MG/NS (PMX) 100 ML IVPB SCH ×2 (14:43→22:38)
--- NOTE | 2017-02-05 17:00 | PN ---
Date/Time of Note Date/Time of Note DATE: 02/05/17 TIME: 16:59 Assessment/Plan VTE Prophylaxis VTE Prophylaxis Intervention: other (Eliquis ) Lines/Catheters [facility] Saline Lock Urinary Cath still in place: No Assessment/Plan Assessment/Plan 1. Acute abdominal pain, most probably secondary to colitis. Continue antibiotics. The patient is currently tolerating a regular diet. Stool studies pending. 2. Distended gallbladder with mild surrounding mesenteric edema, status post evaluation by general surgeon. No indication for acute cholecystitis as per general surgery. Continue medical management. 3. Left lower extremity deep venous thrombosis. Continue Eliquis. 4. Thrombocytopenia, most probably secondary to enlargement of the liver that may indicate cirrhosis. We will monitor the patient for any bleeding. 5. Fluid, electrolytes and nutrition. Low cholesterol diet. 6. Deep venous thrombosis prophylaxis, on Eliquis. 7. Gastrointestinal prophylaxis. Histamine 2 receptor blockers. stollcx grew E coli- d/c IV zosyn, switch to Ciprofloxacin + flagy IV ambulate, relgan prn Nausea/vomitng pain control possibel d/c home tomorrow Subjective 24 Hr Interval Summary Free Text/Dictation c/o pain with Oral intake, + nausea, no vomitin g Exam/Review of Systems Vital Signs Vitals Vital Signs Date Time Temp Pulse Resp B/P Pulse Ox O2 Delivery O2 Flow Rate FiO2 02/05/17 07:32 98.3 69 20 111/54 94 02/01/17 22:35 Room Air Intake and Output 02/04/17 02/04/17 02/05/17 15:00 23:00 07:00 Intake Total 1260 ml 880 ml Balance 1260 ml 880 ml Exam Constitutional: alert, oriented Neck: non-tender Respiratory: normal air movement Cardiovascular: regular rate and rhythm Gastrointestinal: soft, tender Extremities: No edema Neurological: [employer] II-XII intact, nl mental status Skin: nl turgor Results Result Diagram: 02/05/17 0520 02/05/17 0520 Results 24 hrs Laboratory Tests Test 02/05/17 05:20 White Blood Count 5.6 # Red Blood Count 4.03 L Hemoglobin 12.8 Hematocrit 38.6 Mean Corpuscular Volume 95.8 Mean Corpuscular Hemoglobin 31.8 Mean Corpuscular Hemoglobin Concent 33.2 Red Cell Distribution Width 14.6 H Platelet Count 110 L Mean Platelet Volume 11.6 H Neutrophils % 58.9 Lymphocytes % 25.1 Monocytes % 7.0 Eosinophils % 7.9 H Basophils % 0.7 Nucleated Red Blood Cells % 0.0 Neutrophils # 3.3 Lymphocytes # 1.4 Monocytes # 0.4 Eosinophils # 0.4 Basophils # 0.0 Nucleated Red Blood Cells # 0.0 Sodium Level 142 Potassium Level 3.7 Chloride Level 113 H Carbon Dioxide Level 27 Anion Gap 6 L Blood Urea Nitrogen 4 L Creatinine 0.60 Glucose Level 81 Hemoglobin A1c 5.4 Calcium Level 7.2 L Phosphorus Level 1.2 L Magnesium Level 1.7 Triglycerides Level 83 Cholesterol Level 80 L LDL Cholesterol, Calculated 37 HDL Cholesterol 26 L Cholesterol/HDL Ratio 3.0 Medications Medications Current Medications Morphine Sulfate (morphine) 3 mg Q4H PRN IV PAIN; Start 02/02/17 at 00:00 Apixaban (Eliquis) 5 mg BID PO Last administered on 02/05/17 08:32; Admin Dose 5 MG; Start 02/02/17 at 09:00 Famotidine (Pepcid) 20 mg DAILY PO Last administered on 02/05/17 08:32; Admin Dose 20 MG; Start 02/04/17 at 13:00 Ondansetron HCl 4 mg 4 mg Q6H PRN IV NAUSEA AND/OR VOMITING; Start 02/04/17 at 13:00 Ciprofloxacin/ Dextrose 200 ml @ 200 mls/hr Q12 IVPB Last administered on 02/05 12:44; Admin Dose 200 MLS/HR; Start 02/05/17 at 12:00 Metronidazole 100 ml @ 100 mls/hr Q8 IVPB Last administered on 02/05/17 14:43 ; Admin Dose 100 MLS/HR; Start 02/05/17 at 14:00 Potassium Phosphate/Sodium Chloride (K Phos (Meq)/NS) 254.5455 ml @ 63.636 m... ONCE IVPB Last administered on 02/05/17 15:57; Admin Dose 63.636 MLS/HR; Start 02/05/17 at 13:30; Stop 02/05/17 at 17:29 JAJA BOOTHE MD February 05, 2017 17:00
[2017-02-05 20:00] VITALS: BP 146/67; RESP 19
[2017-02-05 20:35] VITALS: BP 128/59; PULSE 82; RESP 18
[2017-02-06 05:36] LABS: ADD SCAN DIFF NO
[2017-02-06 05:42] LABS: BASOPHILS % 0.4 % (0.0-2.0); EOSINOPHILS # 0.4 10^3/ul (0.0-0.5); EOSINOPHILS % 6.8 % (0.0-7.0); HEMATOCRIT 36.8 % (37.0-47.0); HEMOGLOBIN 12.2 g/dl (12.0-16.0); LYMPHOCYTES # 1.8 10^3/ul (0.8-2.9); LYMPHOCYTES % 33.6 % (15.0-51.0); MEAN CORPUSCULAR HEMOGLOBIN 31.4 pg (29.0-33.0); MEAN CORPUSCULAR HGB CONC 33.2 g/dl (32.0-37.0); MEAN CORPUSCULAR VOLUME 94.6 fl (82.0-101.0); MEAN PLATELET VOLUME 11.3 fl (7.4-10.4); MONOCYTE # 0.4 10^3/ul (0.3-0.9); MONOCYTES % 7.4 % (0.0-11.0); NEUTROPHIL # 2.7 10^3/ul (1.6-7.5); NEUTROPHILS % 51.4 % (39.0-77.0); PLATELET COUNT 109 10^3/UL (140-415); RED BLOOD COUNT 3.89 10^6/ul (4.20-5.40); RED CELL DISTRIBUTION WIDTH 14.6 % (11.5-14.5); WHITE BLOOD COUNT 5.3 10^3/ul (4.8-10.8)
[2017-02-06 05:55] LABS: CALCIUM 7.9 mg/dl (8.4-10.2); CREATININE 0.54 mg/dl (0.44-1.00); POTASSIUM 3.6 mmol/L (3.5-5.1)
[2017-02-06] MEDS: metroNIDAZOLE 500 MG/NS (PMX) 100 ML IVPB SCH ×2 (05:57→13:23)
[2017-02-06 07:36] VITALS: BP 132/60; RESP 18
[2017-02-06] MEDS: CIPROFLOXACIN 400MG/D5W 200 ML IVPB SCH (08:28)
[2017-02-06] MEDS: CALCIUM CARBONATE 500 MG CHEW TAB PO SCH ×2 (08:29→13:23)
[2017-02-06] MEDS: APIXABAN 5 MG TABLET PO SCH (08:29)
[2017-02-06] MEDS: FAMOTIDINE 20 MG TAB PO SCH (08:29)
--- NOTE | 2017-02-06 13:13 | PN ---
Date/Time of Note Date/Time of Note DATE: 02/06/17 TIME: 13:12 Assessment/Plan VTE Prophylaxis VTE Prophylaxis Intervention: SCD's Lines/Catheters IV [facility] Type (from [facility] Saline Lock Urinary Cath still in place: No Assessment/Plan Assessment/Plan 1. Acute abdominal pain, most probably secondary to colitis. Continue antibiotics. The patient is currently tolerating a regular diet. Stool studies pending. 2. Distended gallbladder with mild surrounding mesenteric edema, status post evaluation by general surgeon. No indication for acute cholecystitis as per general surgery. Continue medical management. 3. Left lower extremity deep venous thrombosis. Continue Eliquis. 4. Thrombocytopenia, most probably secondary to enlargement of the liver that may indicate cirrhosis. We will monitor the patient for any bleeding. 5. Fluid, electrolytes and nutrition. Low cholesterol diet. 6. Deep venous thrombosis prophylaxis, on Eliquis. 7. Gastrointestinal prophylaxis. Histamine 2 receptor blockers. stollcx grew E coli- d/c IV zosyn, switch to Ciprofloxacin + flagy IV ambulate, relgan prn Nausea/vomitng pain control possibel d/c home today Subjective 24 Hr Interval Summary Free Text/Dictation no acute events,BP stable,a febrile Exam/Review of Systems Vital Signs Vitals Vital Signs Date Time Temp Pulse Resp B/P Pulse Ox O2 Delivery O2 Flow Rate FiO2 02/06/17 07:36 98.2 67 18 132/60 93 02/05/17 20:35 Room Air Intake and Output 02/05/17 02/05/17 02/06/17 15:00 23:00 07:00 Intake Total 454.5455 ml 800 ml Balance 454.5455 ml 800 ml Results Result Diagram: 02/06/17 0505 02/06/17 0505 Results 24 hrs Laboratory Tests Test 02/06/17 05:05 White Blood Count 5.3 Red Blood Count 3.89 L Hemoglobin 12.2 Hematocrit 36.8 L Mean Corpuscular Volume 94.6 Mean Corpuscular Hemoglobin 31.4 Mean Corpuscular Hemoglobin Concent 33.2 Red Cell Distribution Width 14.6 H Platelet Count 109 L Mean Platelet Volume 11.3 H Neutrophils % 51.4 Lymphocytes % 33.6 Monocytes % 7.4 Eosinophils % 6.8 Basophils % 0.4 Nucleated Red Blood Cells % 0.0 Neutrophils # 2.7 Lymphocytes # 1.8 Monocytes # 0.4 Eosinophils # 0.4 Basophils # 0.0 Nucleated Red Blood Cells # 0.0 Sodium Level 137 Potassium Level 3.6 Chloride Level 107 Carbon Dioxide Level 28 Anion Gap 6 L Blood Urea Nitrogen 3 L Creatinine 0.54 Glucose Level 84 Calcium Level 7.9 L Magnesium Level 1.5 L Medications Medications Current Medications Morphine Sulfate (morphine) 3 mg Q4H PRN IV PAIN; Start 02/02/17 at 00:00 Apixaban (Eliquis) 5 mg BID PO Last administered on 02/06/17 08:29; Admin Dose 5 MG; Start 02/02/17 at 09:00 Famotidine (Pepcid) 20 mg DAILY PO Last administered on 02/06/17 08:29; Admin Dose 20 MG; Start 02/04/17 at 13:00 Ondansetron HCl 4 mg 4 mg Q6H PRN IV NAUSEA AND/OR VOMITING; Start 02/04/17 at 13:00 Ciprofloxacin/ Dextrose 200 ml @ 200 mls/hr Q12 IVPB Last administered on 02/06 08:28; Admin Dose 200 MLS/HR; Start 02/05/17 at 12:00 Metronidazole (Flagyl 500 Mg (Pmx)) 100 ml @ 100 mls/hr Q8 IVPB Last administered on 02/06/17 05:57; Admin Dose 100 MLS/HR; Start 02/05/17 at 14:00 Magnesium Oxide (Mag-Ox 400) 400 mg ONCE ONCE PO ; Start 02/06/17 at 13:30; Stop 02/06/17 at 13:31; Status JAJA HERRERA MD February 06, 2017 13:13
[2017-02-06] MEDS ORDERED: MAGNESIUM OXIDE 400 MG TAB PO ONE (13:30)
--- NOTE | 2017-02-07 00:06 | PN ---
Date/Time of Note Date/Time of Note DATE: 02/05/17 TIME: 22:05 Assessment/Plan Lines/Catheters IV Catheter Type (from Nrs): Saline Lock Mauro in Place (from Nrs): No Assessment/Plan Chief Complaint/Hosp Course 1. Abdominal pain, fever, ? probable colitis. Improving. -abx -judicious fluid management -supportive measure 2. BMI 40 -diet and exercise optimization 3. Thrombocytopenia ? 2nd Cirrhosis -close monitoring -GI and medical optimization 4. GERD -ppi 5. HTN -diet/med optimization -encourage weight loss 6. Recent Pyelonephritis with +UA -abx -cx 7. LE DVT on Coumadin -anticoagulation Thank you, Late entry 02/05 Problems: Subjective 24 Hr Interval Summary Pain improved. No f/c. No cp/sob. No cough. No cruz/dizzy/visual or neuro changes. No dysuria. Stool more formed. Exam/Review of Systems Vital Signs Vitals Vital Signs Date Time Temp Pulse Resp B/P Pulse Ox O2 Delivery O2 Flow Rate FiO2 02/06/17 07:36 98.2 67 18 132/60 93 02/05/17 20:35 Room Air Intake and Output 02/06/17 02/06/17 02/07/17 15:00 23:00 07:00 Intake Total 300 ml 800 ml Balance 300 ml 800 ml Exam Free Text/Dictation Constitutional: alert, obese, oriented, No distress Psych: nl mood/affect, No anxiety, No confusion Head: atraumatic, normocephalic Eyes: EOMI, PERRL, nl conjunctiva, No icteric ENMT: mucosa pink and moist, nl external ears & nose, nl lips & teeth Neck: non-tender, supple, No jvd Respiratory: normal air movement, No congested cough, No labored breathing Cardiovascular: regular rate and rhythm, No edema Gastrointestinal: soft, tender (minimally diffusely), No distended, No rebound or guarding Musculoskeletal: nl extremities to inspection, nl gait and stance, No joint tenderness Extremities: normal pulses, No calf tenderness, No edema Neurological: nl mental status, nl speech, nl strength Skin: nl turgor, No diaphoresis, No rash or lesions Lymph: nl lymph nodes Results Result Diagram: 02/06/17 0505 02/06/17 0505 JAMES SAMANO MD Feb 07, 2017 00:06
--- NOTE | 2017-02-07 00:07 | PN ---
Date/Time of Note Date/Time of Note DATE: 02/06/17 TIME: 10:06 Assessment/Plan Lines/Catheters IV Catheter Type (from Nrs): Saline Lock Mauro in Place (from Nrs): No Assessment/Plan Chief Complaint/Hosp Course 1. Abdominal pain, fever, ? probable colitis. Improving. -abx -judicious fluid management -supportive measure 2. BMI 40 -diet and exercise optimization 3. Thrombocytopenia ? 2nd Cirrhosis -close monitoring -GI and medical optimization 4. GERD -ppi 5. HTN -diet/med optimization -encourage weight loss 6. Recent Pyelonephritis with +UA -abx -cx 7. LE DVT on Coumadin -anticoagulation Thank you, Late entry 02/06 Problems: Subjective 24 Hr Interval Summary Pain improved. No f/c. No cp/sob. No cough. No cruz/dizzy/visual or neuro changes. No dysuria. Stool more formed. Exam/Review of Systems Vital Signs Vitals Vital Signs Date Time Temp Pulse Resp B/P Pulse Ox O2 Delivery O2 Flow Rate FiO2 02/06/17 07:36 98.2 67 18 132/60 93 02/05/17 20:35 Room Air Intake and Output 02/06/17 02/06/17 02/07/17 15:00 23:00 07:00 Intake Total 300 ml 800 ml Balance 300 ml 800 ml Exam Free Text/Dictation Constitutional: alert, obese, oriented, No distress Psych: nl mood/affect, No anxiety, No confusion Head: atraumatic, normocephalic Eyes: EOMI, PERRL, nl conjunctiva, No icteric ENMT: mucosa pink and moist, nl external ears & nose, nl lips & teeth Neck: non-tender, supple, No jvd Respiratory: normal air movement, No congested cough, No labored breathing Cardiovascular: regular rate and rhythm, No edema Gastrointestinal: soft, tender (minimally diffusely), No distended, No rebound or guarding Musculoskeletal: nl extremities to inspection, nl gait and stance, No joint tenderness Extremities: normal pulses, No calf tenderness, No edema Neurological: nl mental status, nl speech, nl strength Skin: nl turgor, No diaphoresis, No rash or lesions Lymph: nl lymph nodes Results Result Diagram: 02/06/17 0505 02/06/17 0505 JAMES SAMANO MD Feb 07, 2017 00:07
--- NOTE | 2017-02-07 23:25 | DS ---
DATE OF ADMISSION: 02/01/2017 DATE OF DISCHARGE: 02/06/2017 FINAL DISCHARGE DIAGNOSES: 1. Acute colitis involving the descending colon. 2. Distended gallbladder with mild surrounding mesenteric edema, possible biliary colic. 3. Left lower extremity deep venous thromboses, on Eliquis. 4. Thrombocytopenia secondary to fatty liver and liver cirrhosis. CONSULTATIONS DONE DURING THIS HOSPITALIZATION: General surgery consultation, Dr. Mehdi Mcintosh. No plan for any surgical intervention. PROCEDURES PERFORMED DURING THIS HOSPITALIZATION: None. HOSPITAL COURSE: This is a 76-year-old female with a past medical history of hypertension, gastroes ophageal reflux disease, left leg DVT, on Eliquis, and previous pyelonephritis, [facility] with a complaint of abdominal pain, fever and weakness. She had a lower extremity DVT diagnosed 3 weeks prior to the last hospitalization at [facility]. The patient was on Coumadin at at time. She was subsequently changed to Eliquis. She presented to [facility] wi th abdominal pain, and her workup revealed acute colitis. Also noted to have a distended gallbladde r with gallbladder wall thickening, for which she had general surgery consultation done by Dr. Michael Mcintosh, who recommended no surgical intervention. The patient was treated with IV antibiotics, c iprofloxacin and Flagyl. Stool culture grew E. coli. She was switched to Cipro upon discharge. Th e patient was afebrile. White count was normal at the time of the discharge, and she was discharged home with prescriptions of ciprofloxacin and Flagyl. DISPOSITION: To home. DISCHARGE CONDITION: Stable and improved compared to admission. DISCHARGE ACTIVITIES: As tolerated, slowly resume to the normal baseline activity. DISCHARGE DIET: Low fat, low sodium, high residual diet. DISCHARGE MEDICATIONS: She is given new prescription of: 1. Ciprofloxacin 500 mg p.o. b.i.d. x7 days. 2. Imodium p.r.n. diarrhea. 3. Reglan 10 mg p.o. q.6h. p.r.n. nausea, vomiting. She is continued on all of her other home medication upon discharge, including Eliquis for anticoagu lation for her lower extremity deep venous thrombosis. DISCHARGE FOLLOWUP INSTRUCTIONS: 1. The patient is to follow up with her own primary care doctor through her insurance 1 to 2 weeks after discharge. 2. The patient is to follow up with all of her other subspecialist physicians as outpatient. She has been explained about the discharge plan and followup instructions. She understood and verbmya patel understanding. Dictated By: JAJA BOOTHE MD, KP/KAY Conf#: [id number] DID#: [id number]
== END 2017-02-06 17:53 | disposition home or self-care (01) | DRG 372 ==
LOC: E/R 17:42 → PP2 22:13
PROVIDERS: ADMIT Internal Medicine; ATTEND Internal Medicine
DX: A04.4 Other intestinal Escherichia coli infections (principal); I82.402 Acute embolism and thrombosis of unspecified deep veins of left lower extremity; D69.6 Thrombocytopenia, unspecified; K74.60 Unspecified cirrhosis of liver; E88.09 Other disorders of plasma-protein metabolism, not elsewhere classified; K80.70 Calculus of gallbladder and bile duct without cholecystitis without obstruction; K52.9 Noninfective gastroenteritis and colitis, unspecified; Z79.02 Long term (current) use of antithrombotics/antiplatelets; I10 Essential (primary) hypertension; K21.9 Gastro-esophageal reflux disease without esophagitis; K57.90 Diverticulosis of intestine, part unspecified, without perforation or abscess without bleeding; B96.20 Unspecified Escherichia coli [E. coli] as the cause of diseases classified elsewhere; K76.0 Fatty (change of) liver, not elsewhere classified
CPT/HCPCS: 36415; 74176; 76705; 80048; 80053; 80061; 81003; 83036; 83690; 83735; 84100; 85025; 85610; 85730; 87045; 87075; 87081; 87086; 96374; 96375; J0744; J2270; J2405; J2543; J7042; J7050